=== PATIENT | female | born 1975 | race Caucasian/White ===

== ENCOUNTER 2017-03-03 20:52 | Emergency (ER) | payer OTHER ==
[~2017-03-03] VITALS: Ht 157.5 cm; Wt 74.0 kg
[~2017-03-03 20:52] MED LIST: HYDR-3535 PO; LIPI20TA PO
[2017-03-03 20:56] VITALS: BP 175/109; PULSE 88; RESP 16; TEMP 98.2; O2SAT 100
[2017-03-03] MEDS ORDERED: AMPH1TAB29 PO (21:07)
[2017-03-03] MEDS ORDERED: LISI10TA3 PO (21:07)
[2017-03-03] MEDS ORDERED: LEVO125T4 PO (21:07)
[2017-03-03] MEDS ORDERED: ACETAMINOPHEN/HYDROcodone 325 MG/5 MG TAB PO ONE (21:45)
--- NOTE | 2017-03-03 22:09 | RADRPT ---
EXAM DATE/TIME: 03/03/2017 21:50 [facility] COMPARISON: No previous studies available for comparison. INDICATIONS : Pain post fall. MEDICAL HISTORY : None. SURGICAL HISTORY : None. ENCOUNTER: Initial ACUITY: 3 days PAIN SCORE: 4/10 LOCATION: Right Elbow. FINDINGS: Multiple view examination of the right elbow demonstrates no soft tissue swelling, joint effusion, or fracture. The osseous structures are in normal alignment. Bony mineralization is normal. CONCLUSION: Intact right elbow. pM Beth MD on March 03, 2017 at 22:06 Board Certified Radiologist. This report was verified electronically.
--- NOTE | 2017-03-03 22:10 | RADRPT ---
EXAM DATE/TIME: 03/03/2017 21:50 [facility] COMPARISON: No previous studies available for comparison. INDICATIONS : Pain post fall. MEDICAL HISTORY : None. SURGICAL HISTORY : None. ENCOUNTER: Initial ACUITY: 3 days PAIN SCORE: 6/10 LOCATION: Right Forearm. FINDINGS: Soft tissue swelling seen dorsally of the proximal forearm. No radiopaque foreign body. The right rad ius and ulna are intact. CONCLUSION: Soft tissue swelling. No fracture. Mp Beth MD on March 03, 2017 at 22:07 Board Certified Radiologist. This report was verified electronically.
--- NOTE | 2017-03-03 22:14 | PD ---
HPI Chief Complaint: Injury Time Seen by Provider: 21:18 Travel History International Travel<30 days: No Contact w/Intl Traveler<30days: No Traveled to known affect area: No History of Present Illness HPI 41-year-old female came to the emergency room for right upper extremity pain and swelling after a fall 4 days ago. Patient says that she was walking in her kitchen when she slipped on a puddle of water and flipped backwards. Her right upper extremity hit against the refrigerator that caught her from landing on the ground but the impact was hard enough where she immediately bruised up near her elbow area. Since then she has been hurting. The pain has been progressively worsening. It hurts to twist her elbow or lift anything or even put pressure on the wrist. Vital signs are stable. Patient says that the first day she try to ice the area but that made the pain worse so she stopped doing it. She has been drinking reasonably taking Advil. Last time she took Advil was at 9 PM today. [facility] Past Medical History Narrative Medical List of her past medical, surgical, social and family history is reviewed from the nursing note. Bipolar Disorder: Yes Anxiety: Yes Depression: Yes Cancer: No Cardiovascular Problems: Yes (HTN) High Cholesterol: Yes Congestive Heart Failure: No Diabetes: No Diminished Hearing: No Endocrine: No Glaucoma: No Genitourinary: Yes Hepatitis: No Hiatal Hernia: No Herniated Disk: No Hypertension: Yes Immune Disorder: No Kidney Stones: Yes Musculoskeletal: No Neurologic: No Psychiatric: Yes Reproductive: No Respiratory: No Immunizations Current: Yes Thyroid Disease: No Tetanus Vaccination: < 5 Years Influenza Vaccination: No ?: Not Ovarian Cysts: Yes Past Surgical History Abdominal Surgery: Yes (CHOLECYSTECTOMY 2007, APPENDECTOMY 2008) Appendectomy: Yes Cardiac Surgery: No Cholecystectomy: Yes Ear Surgery: No Endocrine Surgery: No Eye Surgery: No Genitourinary Surgery: No Gynecologic Surgery: Yes (HYSTERECTOMY 2006) Hysterectomy: Yes Neurologic Surgery: No Oral Surgery: Yes (TONSILLECTOMY 1987) Pacemaker: No Thoracic Surgery: No Tonsillectomy: Yes Other Surgery: Yes (LITHOTRPSYS) Social History Alcohol Use: Yes (social) Tobacco Use: No (quit 8 years) Substance Use: Yes Allergies-Medications (Allergen,Severity, Reaction): Coded Allergies: Sulfa (Sulfonamide Antibiotics) (Unverified Allergy, Severe, N/V, 03/03/17) morphine (Unverified Allergy, Severe, RESP PROBLEMS, 03/03/17) Comments List of her allergies reviewed from the nursing note. Reported Meds & Prescriptions Reported Meds & Active Scripts Active Ibuprofen 600 Mg Tab 600 Mg PO Q6H PRN Reported Adderall (Amphetamine-Dextroamphetamine) 5 Mg Tab 5 Mg PO DAILY Avoid late evening doses. Space doses at least 4 to 6 hours if more than once/day dosing. Levothyroxine (Levothyroxine Sodium) 125 Mcg Tab 125 Mcg PO DAILY Lisinopril 10 Mg Tab 10 Mg PO DAILY PRN Lipitor (Atorvastatin Calcium) 20 Mg Tab 20 Mg PO HS Narrative Medication List of her home medications reviewed from the nursing note. Review of Systems Except as stated in HPI: all other systems reviewed are Neg Musculoskeletal: Positive: Pain Physical Exam Narrative GENERAL: Awake, alert, moderate distress SKIN: Focused skin assessment warm/dry. Left elbow area has contusion and bruising HEAD: Atraumatic. Normocephalic. EYES: Pupils equal and round. No scleral icterus. No injection or drainage. ENT: No nasal bleeding or discharge. Mucous membranes pink and moist. NECK: Trachea midline. No JVD. CARDIOVASCULAR: Regular rate and rhythm. No murmur appreciated. RESPIRATORY: No accessory muscle use. Clear to auscultation. Breath sounds equal bilaterally. GASTROINTESTINAL: Abdomen soft, non-tender, nondistended. Hepatic and splenic margins not palpable. MUSCULOSKELETAL: No obvious deformities. No clubbing. No cyanosis. No edema. Decreased range of motion at the wrist and elbow joint due to the pain. Distal pulsations and sensation intact NEUROLOGICAL: Awake and alert. No obvious cranial nerve deficits. Motor grossly within normal limits. Normal speech. PSYCHIATRIC: Appropriate mood and affect; insight and judgment normal. Data Data Last Documented VS Vital Signs Date Time Temp Pulse Resp B/P (MAP) Pulse Ox O2 Delivery O2 Flow Rate FiO2 03/03/17 20:56 98.2 88 16 175/109 (131) 100 Orders Orders Elbow, Complete (4 Vws) (03/03/17 ) Wrist, Complete (Dtd8gpo) (03/03/17 ) Forearm (2vws) (03/03/17 ) Acetamin-Hydrocod 325-5 Mg ([place] 5-325 (03/03/17 21:45) Ed Discharge Order (03/03/17 22:22) [facility] Medical Decision Making Medical Screen Exam Complete: Yes Emergency Medical Condition: Yes Medical Record Reviewed: Yes Differential Diagnosis Elbow fracture, forearm fracture, wrist fracture, elbow strain Narrative Course 10:19 PM x-ray of the elbow and forearm has been read negative by radiologist. X-ray of the wrist has been read negative as well. Patient was given 2 hydrocodone's. At this point I'll discharge her home and have her follow-up with her primary care. Procedures EKG Prior to Arrival: No Diagnosis Primary Impression: Elbow strain Qualified Codes: S56.911A - Strain of unspecified muscles, fascia and tendons at forearm level, right arm, initial encounter Additional Impression: Wrist strain Qualified Codes: S66.911A - Strain of unspecified muscle, fascia and tendon at wrist and hand level, right hand, initial encounter Referrals: Primary Care Physician 2 days Additional Instructions: Take the medication as per the prescription direction. Apply ice pack to the area. Not lift heavy weight or prevent excessive use of the right arm at the elbow and wrist joint. Follow-up with your primary care next couple days. Return to ER if condition worsens or any other new concerns. Drink lots of fluid while taking the pain medication that's been prescribed to you. Do not take empty stomach. Med/Other Pt SpecificInfo: Prescription(s) given Scripts Ibuprofen (Ibuprofen) 600 Mg Tab 600 MG PO Q6H Y for Pain/Inflammation, #40 TAB 0 Refills Prov: Desiree Wilder MD 03/03/17 Disposition: 01 DISCHARGE HOME Condition: Stable Desiree Wilder MD Mar 03, 2017 22:14
--- NOTE | 2017-03-03 22:17 | RADRPT ---
EXAM DATE/TIME: 03/03/2017 21:50 [facility] COMPARISON: ELBOW RIGHT COMPLETE (4 VWS), March 03, 2017, 21:50. INDICATIONS : Pain post fall MEDICAL HISTORY : None acutely relevant SURGICAL HISTORY : None ENCOUNTER: Initial ACUITY: 3 days PAIN SCORE: 4/10 LOCATION: Right wrist FINDINGS: Three view examination of the right wrist demonstrates no soft tissue swelling, dislocation, or fract ure. The carpal bones are in normal alignment. The joint spaces are maintained. Bony mineralizatio n is normal. CONCLUSION: Normal, intact right wrist. Mp Beth MD on March 03, 2017 at 22:14 Board Certified Radiologist. This report was verified electronically.
[2017-03-03] MEDS ORDERED: IBUP-232 PO (22:21)
== END 2017-03-03 22:55 | disposition home or self-care (01) ==
LOC: PHEFT 20:52
DX: S56.911A Strain of unspecified muscles, fascia and tendons at forearm level, right arm, initial encounter (principal); S66.911A Strain of unspecified muscle, fascia and tendon at wrist and hand level, right hand, initial encounter; E78.00 Pure hypercholesterolemia, unspecified; I10 Essential (primary) hypertension; F31.9 Bipolar disorder, unspecified; W01.198A Fall on same level from slipping, tripping and stumbling with subsequent striking against other object, initial encounter; Y92.000 Kitchen of unspecified non-institutional (private) residence as the place of occurrence of the external cause
CPT/HCPCS: 73080; 73090; 73110; 99283

== ENCOUNTER 2017-04-21 22:29 | Inpatient (IN) | payer OTHER ==
[~2017-04-21] VITALS: Ht 162.6 cm; Wt 77.0 kg
[~2017-04-21 22:29] MED LIST changes: +AMPH1TAB29 PO; -HYDR-3535 PO; +IBUP-232 PO; +LEVO125T4 PO; +LISI10TA3 PO
[2017-04-21 22:40] VITALS: BP 164/102; PULSE 87; PULSE 92; RESP 10; RESP 14; TEMP 98; O2SAT 100; O2SAT 92
[2017-04-21] MEDS ORDERED: SODIUM CHLOR 0.9% 1000 ML INJ 1,000 ML IV ONE ×2 (22:42→23:00)
[2017-04-21] MEDS ORDERED: ROCURONIUM INJ 50 MG/5 ML VIAL IV ONE (22:45)
[2017-04-21] MEDS ORDERED: SODIUM CHLORIDE 0.9% FLUSH 10 ML FLUSH IVF PRN (22:45)
[2017-04-21] MEDS ORDERED: ETOMIDATE 20 MG/10 ML VIAL IV PUSH ONE (22:45)
[2017-04-21] MEDS: PROPOFOL 1000 MG/100 ML INJ 100 ML IV PRN (23:05)
--- NOTE | 2017-04-21 23:11 | PD ---
HPI Chief Complaint: OD/ Ingestion Time Seen by Provider: 22:41 Travel History International Travel<30 days: No Contact w/Intl Traveler<30days: No Traveled to known affect area: No History of Present Illness HPI 41-year-old female brought in by ambulance from home unresponsive as a potential drug overdose. According to EMS the patient was found by her son unresponsive in her bedroom with empty pill bottles nearby. EMS reports that the son stated that she has been making suicidal statements lately. They gave her 0.4 mg of Narcan 2 without any improvement in mental status. They did note pinpoint pupils and sonorous respirations with decreased respiratory rate. They attempted to intubate her by pretreating her with 20 mg of etomidate and 2 mg of Versed, however they were unable to unhinge her jaw, so intubation was not attempted. Upon arrival to the emergency department the patient's respirations are being assisted by BVM. She is unresponsive. She was given 4 mg of IV Narcan upon arrival with only minimal improvement in mentation as well as response to painful stimuli. Patient was forming in her mouth and not protecting her airway. Because of this she was intubated emergently by me shortly after arrival to the emergency department for airway protection. PFSH Past Medical History Bipolar Disorder: Yes Anxiety: Yes Depression: Yes Cancer: No Cardiovascular Problems: Yes (HTN) High Cholesterol: Yes Congestive Heart Failure: No Diabetes: No Diminished Hearing: No Endocrine: No Glaucoma: No Genitourinary: Yes Hepatitis: No Hiatal Hernia: No Herniated Disk: No Hypertension: Yes Immune Disorder: No Kidney Stones: Yes Musculoskeletal: No Neurologic: No Psychiatric: Yes Reproductive: No Respiratory: No Immunizations Current: Yes Thyroid Disease: No Ovarian Cysts: Yes Past Surgical History Abdominal Surgery: Yes (CHOLECYSTECTOMY 2007, APPENDECTOMY 2008) Appendectomy: Yes Cardiac Surgery: No Cholecystectomy: Yes Ear Surgery: No Endocrine Surgery: No Eye Surgery: No Genitourinary Surgery: No Gynecologic Surgery: Yes (HYSTERECTOMY 2006) Hysterectomy: Yes Neurologic Surgery: No Oral Surgery: Yes (TONSILLECTOMY 1987) Pacemaker: No Thoracic Surgery: No Tonsillectomy: Yes Other Surgery: Yes (LITHOTRPSYS) Social History Alcohol Use: Yes (social) Tobacco Use: No (quit 8 years) Substance Use: Yes Allergies-Medications (Allergen,Severity, Reaction): Coded Allergies: Sulfa (Sulfonamide Antibiotics) (Unverified Allergy, Severe, N/V, 04/21/17) morphine (Unverified Allergy, Severe, RESP PROBLEMS, 04/21/17) Reported Meds & Prescriptions Reported Meds & Active Scripts Active Ibuprofen 600 Mg Tab 600 Mg PO Q6H PRN Reported Risperidone 0.5 Mg Tab 0.5 Mg PO Q12HR Promethazine (Promethazine HCl) 12.5 Mg Tab 12.5 Mg PO Q8HR PRN Tamsulosin (Tamsulosin HCl) 0.4 Mg Cap 0.8 Mg PO HS Omeprazole 20 Mg Tab 20 Mg PO DAILY Meloxicam 15 Mg Tab 15 Mg PO DAILY Cipro (Ciprofloxacin HCl) 500 Mg Tab 500 Mg PO BID Dicyclomine (Dicyclomine HCl) 20 Mg Tab 20 Mg PO QID Flagyl (Metronidazole) 500 Mg Tab 500 Mg PO TID Adderall (Amphetamine-Dextroamphetamine) 5 Mg Tab 5 Mg PO DAILY Avoid late evening doses. Space doses at least 4 to 6 hours if more than once/day dosing. Levothyroxine (Levothyroxine Sodium) 125 Mcg Tab 125 Mcg PO DAILY Lisinopril 10 Mg Tab 10 Mg PO DAILY PRN Lipitor (Atorvastatin Calcium) 20 Mg Tab 20 Mg PO HS Review of Systems ROS Limitations: Intoxication, Altered Mental Status, Unresponsive Physical Exam Narrative GENERAL: Well-developed, well-nourished, unresponsive to verbal or painful stimuli, respirations assisted by BVM, no obvious signs of trauma. SKIN: Focused skin assessment warm/dry. HEAD: Atraumatic. Normocephalic. EYES: Pupils pinpoint, equal, round. Disconjugate gaze. No scleral icterus. No injection or drainage. ENT: Mucous membranes pink and moist. Frothy sputum in mouth. NECK: Trachea midline. No JVD. CARDIOVASCULAR: Tachycardic, rate 110, regular. RESPIRATORY: Bradypneic with a respiratory rate less than 10, BVM assisted respirations. GASTROINTESTINAL: Abdomen soft, non-tender, nondistended. MUSCULOSKELETAL: No obvious deformities. No clubbing. No cyanosis. No edema. NEUROLOGICAL: Obtunded, unresponsive to verbal or painful stimuli. Data Data Last Documented VS Vital Signs Date Time Temp Pulse Resp B/P (MAP) Pulse Ox O2 Delivery O2 Flow Rate FiO2 04/21/17 23:13 108 14 181/91 (121) 98 Ventilator 70 04/21/17 22:40 98.0 Orders Orders Electrocardiogram (04/21/17 22:42) Complete Blood Count With Diff (04/21/17 22:42) Comprehensive Metabolic Panel (04/21/17 22:42) Prothrombin Time / Inr (Pt) (04/21/17 22:42) Act Partial Throm Time (Ptt) (04/21/17 22:42) Chest, Single Ap (04/21/17 22:42) Ct Brain W/O Iv Contrast(Rout) (04/21/17 22:42) Iv Access Insert/Monitor (04/21/17 22:42) Ecg Monitoring (04/21/17 22:42) Oximetry (04/21/17 22:42) Chandni-Gastric Tube Insert/Mon (04/21/17 22:42) Sodium Chloride 0.9% Flush (Ns Flush) (04/21/17 22:45) Sodium Chlor 0.9% 1000 Ml Inj (Ns 1000 M (04/21/17 22:42) Drug Screen, Random Urine (04/21/17 22:42) Alcohol (Ethanol) (04/21/17 22:42) Salicylates (Aspirin) (04/21/17 22:42) Tylenol (Acetaminophen) (04/21/17 22:42) Beta Hcg (Quant/Titer) (04/21/17 22:42) Propofol 1000 Mg/100 Ml Inj (Diprivan 10 (04/21/17 22:45) Etomidate Inj (Amidate Inj) (04/21/17 22:45) Rocuronium Inj (Zemuron Inj) (04/21/17 22:45) Urinary Catheter Insert/Apply (04/21/17 22:43) Sodium Chlor 0.9% 1000 Ml Inj (Ns 1000 M (04/21/17 23:00) Fentanyl Inj (Fentanyl Inj) (04/21/17 23:30) Arterial Blood Gas (Abg) (04/21/17 ) Labs Laboratory Tests Test 04/21/17 22:53 White Blood Count 6.7 TH/MM3 Red Blood Count 4.64 MIL/MM3 Hemoglobin 14.0 GM/DL Hematocrit 40.8 % Mean Corpuscular Volume 88.0 FL Mean Corpuscular Hemoglobin 30.2 PG Mean Corpuscular Hemoglobin Concent 34.4 % Red Cell Distribution Width 12.9 % Platelet Count 274 TH/MM3 Mean Platelet Volume 8.7 FL Neutrophils (%) (Auto) 42.3 % Lymphocytes (%) (Auto) 50.2 % Monocytes (%) (Auto) 5.4 % Eosinophils (%) (Auto) 1.4 % Basophils (%) (Auto) 0.7 % Neutrophils # (Auto) 2.8 TH/MM3 Lymphocytes # (Auto) 3.4 TH/MM3 Monocytes # (Auto) 0.4 TH/MM3 Eosinophils # (Auto) 0.1 TH/MM3 Basophils # (Auto) 0.0 TH/MM3 CBC Comment DIFF FINAL Differential Comment Prothrombin Time 10.0 SEC Prothromb Time International Ratio 1.0 RATIO Activated Partial Thromboplast Time 25.0 SEC Salicylates Level LESS THAN 1.7 MG/DL Urine Opiates Screen NEG Urine Barbiturates Screen NEG Urine Amphetamines Screen POS Urine Benzodiazepines Screen NEG Urine Cocaine Screen NEG Urine Cannabinoids Screen NEG MDM Medical Decision Making Medical Screen Exam Complete: Yes Emergency Medical Condition: Yes Medical Record Reviewed: Yes Interpretation(s) EKG: Sinus, rate 105, normal axis, normal intervals, no acute ischemic abnormality. Differential Diagnosis Drug overdose, medication overdose, intracranial abnormality, metabolic abnormality Narrative Course Vital signs reviewed. CBC is unremarkable. CMP Urine drug screen is positive for amphetamines. Case was discussed with bsw Dr. Lam shortly after the patient arrived to the emergency department, and he will admit the patient to his service to the ICU. Procedures Procedure Narrative Emergent intubation: The patient was put in optimal position for the procedure. Rapid sequence intubation was initiated by me using 20 milligrams of etomidate IV and 50 milligrams of rocuronium IV. The patient was intubated with a 7.5 Persian cuffed endotracheal tube. Tube placement was confirmed by visualization of the tube and balloon passing through the cords, capnometry and subsequent chest x-ray. Breath sounds were equal and well aerated bilaterally postintubation. No breath sounds over stomach. Patient tolerated procedure well. Diagnosis Primary Impression: Altered mental status Qualified Codes: R40.2431 - [place] coma scale score 3-8, in the field [emt or ambulance] Additional Impression: Acute respiratory failure Qualified Codes: J96.00 - Acute respiratory failure, unspecified whether with hypoxia or hypercapnia Admitting Information Admitting Physician Requests: Admit Manpreet Cesar MD Apr 21, 2017 23:11
[2017-04-21 23:12] VITALS: BP 153/94; PULSE 102; RESP 14; O2SAT 100
[2017-04-21] MEDS ORDERED: DICY20TA10 PO (23:12)
[2017-04-21] MEDS ORDERED: CIPR-9 PO (23:12)
[2017-04-21] MEDS ORDERED: TAMS0.4C4 PO (23:12)
[2017-04-21] MEDS ORDERED: OMEP20TA93 PO (23:12)
[2017-04-21] MEDS ORDERED: PROM12.54 PO (23:12)
[2017-04-21] MEDS ORDERED: METR-1 PO (23:12)
[2017-04-21] MEDS ORDERED: RISP0.5T2 PO (23:12)
[2017-04-21] MEDS ORDERED: MELO15TA20 PO (23:12)
[2017-04-21 23:13] VITALS: BP 181/91; PULSE 108; RESP 14; O2SAT 98
[2017-04-21 23:15] LABS: AUTOMATED NEUTROPHIL # 2.8 TH/MM3 (1.8-7.7); BASOPHIL % 0.7 % (0.0-2.0); EOSINOPHIL # 0.1 TH/MM3 (0-0.4); EOSINOPHIL % 1.4 % (0.0-4.0); HEMATOCRIT 40.8 % (35.0-46.0); LYMPH % 50.2 % (9.0-44.0); LYMPHOCYTE # 3.4 TH/MM3 (1.0-4.8); MEAN CORPUSCULAR HEMOGLOBIN 30.2 PG (27.0-34.0); MEAN CORPUSCULAR HGB CONC 34.4 % (32.0-36.0); MEAN PLATELET VOLUME 8.7 FL (7.0-11.0); MONO % 5.4 % (0.0-8.0); MONOCYTE # 0.4 TH/MM3 (0-0.9); NEUT % 42.3 % (16.0-70.0); PLATELET COUNT 274 TH/MM3 (150-450); RED BLOOD COUNT 4.64 MIL/MM3 (4.00-5.30); RED CELL DISTRIBUTION WIDTH 12.9 % (11.6-17.2); WHITE BLOOD COUNT 6.7 TH/MM3 (4.0-11.0)
[2017-04-21 23:42] LABS: ALKALINE PHOSPHATASE 76 U/L (45-117); ALT (GPT) 27 U/L (10-53); TOTAL BILIRUBIN ADULT 0.3 MG/DL (0.2-1.0); TOTAL PROTEIN 7.7 GM/DL (6.4-8.2)
[2017-04-21 23:47] LABS: ALBUMIN 3.8 GM/DL (3.4-5.0)
[2017-04-21 23:48] LABS: ACETAMINOPHEN LESS THAN 2.0 MCG/ML (10.0-30.0); AST (GOT) 28 U/L (15-37); BLOOD UREA NITROGEN 7 MG/DL (7-18); CALCIUM 8.2 MG/DL (8.5-10.1); CHLORIDE 109 MEQ/L (98-107); CREATININE 0.64 MG/DL (0.50-1.00); GLOMERULAR FILTRATION RATE 102 ML/MIN (>89); GLUCOSE,RANDOM 91 MG/DL (74-106); SODIUM (NA) 144 MEQ/L (136-145)
--- NOTE | 2017-04-21 23:49 | HHI.HP ---
HPI Service Critical Care Medicine Primary Care Physician Britton Rod M.D. Admission Diagnosis AMS, possible overdose, acute respiratory failure Diagnosis: Travel History International Travel<30 Days: No Contact w/Intl Traveler <30 Da: No Traveled to Known Affected Are: No History of Present Illness 41-year-old female brought in by ambulance from home unresponsive as a potential drug overdose. According to EMS the patient was found by her son unresponsive in her bedroom with empty pill bottles nearby. EMS reports that the son stated that she has been making suicidal statements lately. They gave her 0.4 mg of Narcan 2 without any improvement in mental status. They did note pinpoint pupils and sonorous respirations with decreased respiratory rate. They attempted to intubate her by pretreating her with 20 mg of etomidate and 2 mg of Versed, however they were unable to unhinge her jaw, so intubation was not attempted. Upon arrival to the emergency department the patient's respirations were assisted by BVM. She was unresponsive. She was given 4 mg of IV Narcan upon arrival with only minimal improvement in mentation as well as response to painful stimuli. Patient was forming in her mouth and not protecting her airway. Therefore she was intubated by ED attending for airway protection. Review of Systems ROS Unobtainable patient sedated and intubated Past Family Social History Allergies: Coded Allergies: Sulfa (Sulfonamide Antibiotics) (Unverified Allergy, Severe, N/V, 04/21/17) morphine (Unverified Allergy, Severe, RESP PROBLEMS, 04/21/17) Past Medical History Nephrolithiasis Anxiety/depression Hypertension Past Surgical History Status post recent left ureteroscopy with laser lithotripsy Status post cholecystectomy Reported Medications Reported Meds & Active Scripts Active Ibuprofen 600 Mg Tab 600 Mg PO Q6H PRN Reported Risperidone 0.5 Mg Tab 0.5 Mg PO Q12HR Promethazine (Promethazine HCl) 12.5 Mg Tab 12.5 Mg PO Q8HR PRN Tamsulosin (Tamsulosin HCl) 0.4 Mg Cap 0.8 Mg PO HS Omeprazole 20 Mg Tab 20 Mg PO DAILY Meloxicam 15 Mg Tab 15 Mg PO DAILY Cipro (Ciprofloxacin HCl) 500 Mg Tab 500 Mg PO BID Dicyclomine (Dicyclomine HCl) 20 Mg Tab 20 Mg PO QID Flagyl (Metronidazole) 500 Mg Tab 500 Mg PO TID Adderall (Amphetamine-Dextroamphetamine) 5 Mg Tab 5 Mg PO DAILY Avoid late evening doses. Space doses at least 4 to 6 hours if more than once/day dosing. Levothyroxine (Levothyroxine Sodium) 125 Mcg Tab 125 Mcg PO DAILY Lisinopril 10 Mg Tab 10 Mg PO DAILY PRN Lipitor (Atorvastatin Calcium) 20 Mg Tab 20 Mg PO HS Active Ordered Medications Current Medications Medications (Trade) Dose Ordered Sig/Yue Route PRN Reason Start Time Stop Time Status Last Admin Dose Admin Sodium Chloride (NS Flush) 2 ml UNSCH PRN IVF FLUSH AFTER USING IV ACCESS 04/21/17 22:45 Propofol 100 ml @ 0 mls/hr TITRATE PRN IV SEDATION 04/21/17 22:45 04/21/17 23:05 Atorvastatin Calcium (Lipitor) 20 mg HS PO 04/22/17 21:00 Ciprofloxacin (Cipro) 500 mg BID PO 04/22/17 09:00 Dicyclomine HCl (Bentyl) 20 mg QID PO 04/22/17 09:00 Levothyroxine Sodium (Synthroid) 125 mcg DAILY PO 04/22/17 09:00 UNV Lisinopril (Prinivil) 10 mg DAILY PRN PO HYPERTENSION 04/22/17 00:30 Metronidazole (Flagyl) 500 mg TID PO 04/22/17 09:00 Risperidone (risperDAL) 0.5 mg Q12HR PO 04/22/17 09:00 Tamsulosin HCl (Flomax) 0.8 mg HS PO 04/22/17 21:00 Family History No family history significant of early coronary artery disease or malignancy Social History No history of tobacco, alcohol or illicit drug use Physical Exam Vital Signs Vital Signs Date Time Temp Pulse Resp B/P (MAP) Pulse Ox O2 Delivery O2 Flow Rate FiO2 04/21/17 23:13 108 14 181/91 (121) 98 Ventilator 70 04/21/17 23:12 102 14 153/94 (113) 100 Ventilator 70 04/21/17 22:40 10 92 Bag Valve 04/21/17 22:40 98.0 92 10 164/102 (122) 92 04/21/17 22:40 70 04/21/17 22:40 87 14 100 Ventilator 70 Physical Exam GENERAL: Well-nourished, well-developed patient. Sedated and intubated SKIN: Warm and dry. HEAD: Normocephalic. EYES: No scleral icterus. No injection or drainage. Pupils are 3 mm bilaterally and sluggishly reactive NECK: Supple, trachea midline. No JVD or lymphadenopathy. CARDIOVASCULAR: Regular rate and rhythm without murmurs, gallops, or rubs. RESPIRATORY: Breath sounds equal bilaterally. No accessory muscle use. GASTROINTESTINAL: Abdomen soft, non-tender, nondistended. MUSCULOSKELETAL: No cyanosis, or edema. BACK: Nontender without obvious deformity. NEURO EXAM: GCS: M 5 Vt E2 Mental Status: The patient is sedated and intubated, she moves all 4 extremities spontaneously however not following commands. Laboratory Laboratory Tests Test 04/21/17 22:53 White Blood Count 6.7 Red Blood Count 4.64 Hemoglobin 14.0 Hematocrit 40.8 Mean Corpuscular Volume 88.0 Mean Corpuscular Hemoglobin 30.2 Mean Corpuscular Hemoglobin Concent 34.4 Red Cell Distribution Width 12.9 Platelet Count 274 Mean Platelet Volume 8.7 Neutrophils (%) (Auto) 42.3 Lymphocytes (%) (Auto) 50.2 Monocytes (%) (Auto) 5.4 Eosinophils (%) (Auto) 1.4 Basophils (%) (Auto) 0.7 Neutrophils # (Auto) 2.8 Lymphocytes # (Auto) 3.4 Monocytes # (Auto) 0.4 Eosinophils # (Auto) 0.1 Basophils # (Auto) 0.0 CBC Comment DIFF FINAL Differential Comment Prothrombin Time 10.0 Prothromb Time International Ratio 1.0 Activated Partial Thromboplast Time 25.0 Blood Urea Nitrogen 7 Creatinine 0.64 Random Glucose 91 Total Protein 7.7 Albumin 3.8 Calcium Level 8.2 Alkaline Phosphatase 76 Aspartate Amino Transf (AST/SGOT) 28 Alanine Aminotransferase (ALT/SGPT) 27 Total Bilirubin 0.3 Sodium Level 144 Potassium Level 3.5 Chloride Level 109 Carbon Dioxide Level 22.0 Anion Gap 13 Estimat Glomerular Filtration Rate 102 Human Chorionic Gonadotropin, Quant 2 Salicylates Level LESS THAN 1.7 Urine Opiates Screen NEG Acetaminophen Level LESS THAN 2.0 Urine Barbiturates Screen NEG Urine Amphetamines Screen POS Urine Benzodiazepines Screen NEG Urine Cocaine Screen NEG Urine Cannabinoids Screen NEG Ethyl Alcohol Level 215 Result Diagram: 04/21/17225204/21/172252 Septic Shock Reassessment Septic shock perfusion: reassessment completed Caprini VTE Risk Assessment Caprini VTE Risk Assessment: Mod/High Risk (score >= 2) Caprini Risk Assessment Model Point Value = 1 Point Value = 2 Point Value = 3 Point Value = 5 Age 41-60 Minor surgery BMI > 25 kg/m2 Swollen legs Varicose veins or History of unexplained or recurrent spontaneous Oral contraceptives or hormone replacement Sepsis (< 1 month) Serious lung disease, including pneumonia (< 1 month) Abnormal pulmonary function Acute myocardial infarction Congestive heart failure (< 1 month) History of inflammatory bowel disease Medical patient at bed rest Age 61-74 Arthroscopic surgery Major open surgery (> 45 min) Laparoscopic surgery (> 45 min) Malignancy Confined to bed (> 72 hours) Immobilizing plaster cast Central venous access Age >= 75 History of VTE Family history of VTE Factor V Leiden Prothrombin 52503I Lupus anticoagulant Anticardiolipin antibodies Elevated serum homocysteine Heparin-induced thrombocytopenia Other congenital or acquired thrombophilia Stroke (< 1 month) Elective arthroplasty Hip, pelvis, or leg fracture Acute spinal cord injury (< 1 month) Prophylaxis Regimen Total Risk Factor Score Risk Level Prophylaxis Regimen 0-1 Low Early ambulation 2 Moderate Order ONE of the following: *Sequential Compression Device (SCD) *Heparin 5000 units SQ BID 3-4 Higher Order ONE of the following medications: *Heparin 5000 units SQ TID *Enoxaparin/Lovenox 40 mg SQ daily (WT < 150 kg, CrCl > 30 mL/min) *Enoxaparin/Lovenox 30 mg SQ daily (WT < 150 kg, CrCl > 10-29 mL/min) *Enoxaparin/Lovenox 30 mg SQ BID (WT < 150 kg, CrCl > 30 mL/min) AND/OR *Sequential Compression Device (SCD) 5 or more Highest Order ONE of the following medications: *Heparin 5000 units SQ TID (Preferred with Epidurals) *Enoxaparin/Lovenox 40 mg SQ daily (WT < 150 kg, CrCl > 30 mL/min) *Enoxaparin/Lovenox 30 mg SQ daily (WT < 150 kg, CrCl > 10-29 mL/min) *Enoxaparin/Lovenox 30 mg SQ BID (WT < 150 kg, CrCl > 30 mL/min) AND *Sequential Compression Device (SCD) Assessment and Plan Assessment and Plan Respiratory failure - Intubated for an airway protection - Vent bundle - Mechanical ventilation - No weaning until neurologically improved - DuoNeb's when necessary Overdose - Unclear substance - Toxicology screen positive for nephropathy demeans - Neuro checks per unit protocol - Supportive care - Aggressive IV hydration Depressions - Psych evaluation when extubated - Risperdal Hypothyroidism - Levothyroxine - TSH level in a.m. DVT GI prophylaxis - Teds SCDs - Lovenox - Pepcid Critical Care: The total critical care time was 35 minutes. Time to perform other separately billable procedures was not included in the critical care time. Wily Lam MD Apr 21, 2017 11:49 pm
[2017-04-22] VITALS (20 sets, daily range): BP systolic 123–164; BP diastolic 82–104; PULSE 69–116; RESP 14; TEMP 96.8–98.3; O2SAT 99–100
--- NOTE | 2017-04-22 00:21 | RADRPT ---
EXAM DATE/TIME: 04/21/2017 23:04 [facility] COMPARISON: No previous studies available for comparison. INDICATIONS : E-T tube placement on an unresponsive possible overdose patient. MEDICAL HISTORY : None. SURGICAL HISTORY : None. ENCOUNTER: Initial ACUITY: 1 day PAIN SCORE: Non-responsive. LOCATION: Bilateral chest FINDINGS: A single view of the chest demonstrates the lungs to be symmetrically aerated without evidence of mas s, infiltrate or effusion. The cardiomediastinal contours are unremarkable. Osseous structures are intact. Endotracheal tube with the tip appropriately position above the ja. Nasogastric tube with the tip curled in the gastric fundus CONCLUSION: 1. Lungs are clear. Heart size is normal. 2. Appropriate position of life support tubes. Nirmal Green MD on April 22, 2017 at 0:19 Board Certified Radiologist. This report was verified electronically.
[2017-04-22] MEDS ORDERED: BISACODYL 10 MG SUPP RECTAL PRN (00:30)
[2017-04-22] MEDS ORDERED: MIDAZOLAM HCL 2 MG/2 ML VIAL IV PUSH PRN (00:30)
[2017-04-22] MEDS ORDERED: MISCELLANEOUS NURSING INFORMATION XX SCH (00:30)
[2017-04-22] MEDS ORDERED: CHLORHEXIDINE GLUCONATE 2 % 1 PACK (2 CLOTHS) TOP PRN (00:30)
[2017-04-22] MEDS ORDERED: ONDANSETRON HCL 4 MG/2 ML VIAL IV PUSH PRN (00:30)
[2017-04-22] MEDS ORDERED: LACTULOSE SYRUP 20 GM/30 ML CUP PO PRN (00:30)
[2017-04-22] MEDS ORDERED: SODIUM CHLORIDE 0.9% FLUSH 10 ML FLUSH IV FLUSH PRN (00:30)
[2017-04-22] MEDS ORDERED: MAGNESIUM HYDROXIDE SUSP 30 ML CUP PO PRN (00:30)
[2017-04-22] MEDS ORDERED: SENNOSIDES 8.6 MG TAB PO PRN (00:30)
[2017-04-22] MEDS ORDERED: LISINOPRIL 10 MG TAB PO PRN (00:30)
[2017-04-22] MEDS ORDERED: POTASSIUM CHLOR 40 MEQ PREMIX 100 ML IV PRN ×2 (00:45)
[2017-04-22] MEDS ORDERED: POTASSIUM PHOSPHATE INJ 30 MMOL in SODIUM CHLOR 0.9% 250 ML INJ 250 ML IV PRN (00:45)
[2017-04-22] MEDS ORDERED: MAGNESIUM OXIDE 400 MG TAB PO PRN (00:45)
[2017-04-22] MEDS ORDERED: POTASSIUM CHLOR 20 MEQ PREMIX 100 ML IV PRN (00:45)
[2017-04-22] MEDS ORDERED: MAGNESIUM SULFATE INJ 2 GM in SODIUM CHLORIDE 0.9% INJ 96 ML IV PRN (00:45)
[2017-04-22] MEDS ORDERED: MAGNESIUM SULFATE INJ 4 GM in SODIUM CHLORIDE 0.9% INJ 92 ML IV PRN (00:45)
[2017-04-22] MEDS ORDERED: POTASSIUM CHLORIDE 25 MEQ EFFERVESCENT TAB PO PRN (00:45)
[2017-04-22] MEDS ORDERED: POTASSIUM PHOSPHATE MONOBASIC 500 MG TAB PO/TUBE PRN (00:45)
[2017-04-22] MEDS ORDERED: SODIUM PHOSPHATE INJ 30 MMOL in SODIUM CHLOR 0.9% 250 ML INJ 240 ML IV PRN (00:45)
[2017-04-22] MEDS: SODIUM CHLOR 0.9% 1000 ML INJ 1,000 ML IV SCH ×2 (01:27→12:18)
[2017-04-22] MEDS: MIDAZOLAM 100 MG/100 ML INJ 100 ML IV PRN ×3 (01:27→21:44)
[2017-04-22] MEDS: PROPOFOL 1000 MG/100 ML INJ 100 ML IV PRN ×4 (01:47→20:21)
[2017-04-22] MEDS: RESP: ALBUTEROL 2.5 MG/IPRATROPIUM 0.5 MG NEB (SCH) INH ×4 (03:58→21:34)
[2017-04-22] MEDS: CHLORHEXIDINE GLUCONATE 2 % 1 PACK (2 CLOTHS) TOP SCH (04:00)
[2017-04-22] MEDS: ENOXAPARIN SODIUM 40 MG/0.4 ML SYRINGE SQ SCH (06:37)
[2017-04-22] MEDS: LEVOTHYROXINE SODIUM 125 MCG TAB PO SCH (06:37)
[2017-04-22 08:09] LABS: HEMATOCRIT 37.8 % (35.0-46.0); MEAN CELL VOLUME 87.7 FL (80.0-100.0); MEAN CORPUSCULAR HEMOGLOBIN 30.1 PG (27.0-34.0); MEAN CORPUSCULAR HGB CONC 34.3 % (32.0-36.0); MEAN PLATELET VOLUME 8.6 FL (7.0-11.0); PLATELET COUNT 232 TH/MM3 (150-450); RED BLOOD COUNT 4.31 MIL/MM3 (4.00-5.30); RED CELL DISTRIBUTION WIDTH 12.6 % (11.6-17.2); WHITE BLOOD COUNT 8.7 TH/MM3 (4.0-11.0)
[2017-04-22] MEDS: risperiDONE 0.5 MG TAB PO SCH ×2 (08:20→20:40)
[2017-04-22] MEDS: metroNIDAZOLE 500 MG TAB PO SCH ×3 (08:20→18:17)
[2017-04-22] MEDS: FAMOTIDINE 20 MG/2 ML VIAL IV PUSH SCH ×2 (08:20→20:40)
[2017-04-22] MEDS: DOCUSATE SODIUM 50 MG/SENNA 8.6 MG TAB PO SCH ×2 (08:20→20:40)
[2017-04-22] MEDS: DICYCLOMINE HCL 20 MG TAB PO SCH ×4 (08:21→20:41)
[2017-04-22] MEDS: SODIUM CHLORIDE 0.9% FLUSH 10 ML FLUSH IV FLUSH SCH ×2 (08:21→20:40)
[2017-04-22] MEDS: CIPROFLOXACIN 500 MG TAB PO SCH ×2 (08:21→20:40)
[2017-04-22] MEDS: CHLORHEXIDINE 0.12% (ORAL KIT) 15 ML CUP MT SCH ×2 (08:24→20:00)
[2017-04-22 08:43] LABS: ALBUMIN 3.4 GM/DL (3.4-5.0); BICARBONATE 22.1 MEQ/L (21.0-32.0); CALCIUM 7.4 MG/DL (8.5-10.1); CALCIUM-PROTEIN CORRECTED 7.7 MG/DL (8.5-10.1); CREATININE 0.53 MG/DL (0.50-1.00); MAGNESIUM 1.8 MG/DL (1.5-2.5); PHOSPHORUS 2.1 MG/DL (2.5-4.9); TOTAL BILIRUBIN ADULT 0.3 MG/DL (0.2-1.0); TOTAL PROTEIN 6.5 GM/DL (6.4-8.2)
[2017-04-22] MEDS: ARTIFICIAL TEARS OPTH SOLN 15 ML BTL EACH EYE SCH ×3 (09:00→18:00)
--- NOTE | 2017-04-22 09:59 | RADRPT ---
EXAM DATE/TIME: 04/22/2017 09:43 [facility] COMPARISON: No previous studies available for comparison. INDICATIONS : Overdose, altered mental status. RADIATION DOSE: 49.03 CTDIvol (mGy) MEDICAL HISTORY : Hypertension. Renal calculi. SURGICAL HISTORY : Appendectomy. Cholecystectomy.Hysterectomy.Lithoyripsy ENCOUNTER: Initial ACUITY: 1 day PAIN SCALE: Non-responsive LOCATION: cranial TECHNIQUE: Multiple contiguous axial images were obtained of the head. Using automated exposure control and adj ustment of the mA and/or kV according to patient size, radiation dose was kept as low as reasonably a chievable to obtain optimal diagnostic quality images. DICOM format image data is available electro nically for review and comparison. FINDINGS: CEREBRUM: The ventricles are normal for age. No evidence of midline shift, mass lesion, hemorrhage or acute in farction. No extra-axial fluid collections are seen. POSTERIOR FOSSA: The cerebellum and brainstem are intact. The 4th ventricle is midline. The cerebellopontine angle i s unremarkable. EXTRACRANIAL: The visualized portion of the orbits is intact. SKULL: The calvaria is intact. No evidence of skull fracture. CONCLUSION: No acute disease. Margarita Ware MD on April 22, 2017 at 9:56 Board Certified Radiologist. This report was verified electronically.
[2017-04-22] MEDS: POTASSIUM CHLOR 20 MEQ PREMIX 100 ML IV PRN ×3 (10:31→15:06)
--- NOTE | 2017-04-22 12:52 | EKG ---
Date Performed: 04/21/2017 Time Performed: 22:40:30 PTAGE: 41 years EKG: SINUS TACHYCARDIA ABNORMAL RHYTHM ECG Compared to PREVIOUS TRACING , heart rate is faster, otherwise no significant change. PREVIOUS TRACIN 09/26/2015 23.01 DOCTOR: Bora Najera Interpretating Date/Time 04/22/2017 12:51:34
[2017-04-22] MEDS: POTASSIUM PHOSPHATE MONOBASIC 500 MG TAB PO PRN ×2 (15:06→18:17)
--- NOTE | 2017-04-22 18:29 | HHI.CCPN ---
Subjective Remarks/Hospital Course 41-year-old female brought in by ambulance from home unresponsive as a potential drug overdose. According to EMS the patient was found by her son unresponsive in her bedroom with empty pill bottles nearby. EMS reports that the son stated that she has been making suicidal statements lately. They gave her 0.4 mg of Narcan 2 without any improvement in mental status. They did note pinpoint pupils and sonorous respirations with decreased respiratory rate. They attempted to intubate her by pretreating her with 20 mg of etomidate and 2 mg of Versed, however they were unable to unhinge her jaw, so intubation was not attempted. Upon arrival to the emergency department the patient's respirations were assisted by BVM. She was unresponsive. She was given 4 mg of IV Narcan upon arrival with only minimal improvement in mentation as well as response to painful stimuli. Patient was forming in her mouth and not protecting her airway. Therefore she was intubated by ED attending for airway protection. Subjective: 04/22: Patient remains sedated and intubated. Noted hypertensive, patient was noted to be positive for amphetamine. PRN labetalol ordered. Objective Vital Signs Date Time Temp Pulse Resp B/P (MAP) Pulse Ox O2 Delivery O2 Flow Rate FiO2 04/22/17 16:00 80 04/22/17 16:00 98.1 14 162/104 (123) 100 04/22/17 14:27 35 04/21/17 23:13 Ventilator Intake and Output 04/22/17 04/22/17 04/23/17 08:00 16:00 00:00 Intake Total 2705.2 ml Output Total 650 ml Balance 2055.2 ml Result Diagram: 04/22/17 0748 04/22/17 0748 Other Results Laboratory Tests Test 04/21/17 23:50 Blood Gas Puncture Site RT FEMORAL Blood Gas Patient Temperature 98.6 Blood Gas HCO3 20 mmol/L (22-26) Blood Gas Base Excess -4.1 mmol/L (-2-2) Blood Gas Oxygen Saturation 99 % (90-100) Arterial Blood pH 7.40 (7.380-7.420) Arterial Blood Partial Pressure CO2 32 mmHg (38-42) Arterial Blood Partial Pressure O2 388 mmHG (61-120) Arterial Blood Oxygen Content 18.6 Vol % (12.0-20.0) Arterial Blood Carboxyhemoglobin 0.6 % (0-4) Arterial Blood Methemoglobin 0.7 % (0-2) Blood Gas Hemoglobin 12.7 G/DL (12.0-16.0) Oxygen Delivery Device VENTILATOR Blood Gas Ventilator Setting Blood Gas Inspired Oxygen 70 % Imaging Last Impressions Head CT 04/21/172241 Signed Impressions: Service Date/Time: Saturday, April 22, 2017 09:43 - CONCLUSION: No acute disease. Margarita Ware MD Chest X-Ray 04/21/172241 Signed Impressions: Service Date/Time: Friday, April 21, 2017 23:04 - CONCLUSION: 1. Lungs are clear. Heart size is normal. 2. Appropriate position of life support tubes. Nirmal Green MD Objective Remarks GENERAL: Well-nourished, well-developed patient of appropriate stated age. Sedated and intubated SKIN: Warm and dry. HEAD: Normocephalic. EYES: No scleral icterus. No injection or drainage. Pupils are 3 mm bilaterally and sluggishly reactive NECK: Supple, trachea midline. No JVD or lymphadenopathy. CARDIOVASCULAR: Regular rate and rhythm without murmurs, gallops, or rubs. RESPIRATORY: Breath sounds equal bilaterally. No accessory muscle use. GASTROINTESTINAL: Abdomen soft, non-tender, nondistended. MUSCULOSKELETAL: No cyanosis, or edema. BACK: Nontender without obvious deformity. NEURO EXAM: GCS: M 5 Vt E2 Mental Status: The patient is sedated and intubated, she moves all 4 extremities spontaneously however not following commands. A/P Assessment and Plan Respiratory failure - Intubated for an airway protection - Vent bundle - Mechanical ventilation - No weaning until neurologically improved - DuoNeb's when necessary Overdose - Unclear substance - Toxicology screen positive for nephropathy demeans - Neuro checks per unit protocol - Supportive care - Aggressive IV hydration Depressions - Psych evaluation when extubated - Risperdal Hypertension - Labatelol, and hydralazine PRN for SBP > 160mmHg Hypothyroidism - Levothyroxine - TSH level in a.m. DVT GI prophylaxis - Teds SCDs - Lovenox - Pepcid Dispo: my billing statement This patient remains critically ill with one or more organ systems which are or may become a threat to life. I have spent in excess of 35 minutes discontinuously in the care and management of this patient. This time is exclusive of procedures, and includes, but is not limited to, evaluation of the patient, review of the medical record, discussions with family, consultants, nursing staff, or respiratory therapy, and documentation in the medical record. Physician Nallely Goddard MD Apr 22, 2017 18:29
[2017-04-22] MEDS ORDERED: LABETALOL HCL 100 MG/20 ML VIAL IV PUSH PRN (18:30)
[2017-04-22] MEDS ORDERED: hydrALAZINE HCL 20 MG/ML VIAL IV PUSH PRN (18:30)
[2017-04-22] MEDS ORDERED: GLUCAGON 1 MG/ML VIAL OTHER PRN (18:45)
[2017-04-22] MEDS ORDERED: DEXTROSE 50% IN WATER 50 ML VIAL(D50) IV PUSH PRN (18:45)
[2017-04-22] MEDS: ATORVASTATIN 20 MG TAB PO SCH (20:41)
[2017-04-22] MEDS: TAMSULOSIN HCL 0.4 MG CAP PO SCH (20:46)
[2017-04-22] MEDS: INSULIN NovoLIN REGULAR SUPPLEMENTAL SCALE SQ SCH (21:00)
[2017-04-23] VITALS (24 sets, daily range): BP systolic 77–133; BP diastolic 44–80; PULSE 61–109; RESP 12–22; TEMP 96.6–98.5; O2SAT 95–100
[2017-04-23] MEDS: PROPOFOL 1000 MG/100 ML INJ 100 ML IV PRN ×4 (00:56→20:21)
[2017-04-23] MEDS: SODIUM CHLOR 0.9% 1000 ML INJ 1,000 ML IV SCH ×3 (00:56→21:58)
[2017-04-23] MEDS: CHLORHEXIDINE GLUCONATE 2 % 1 PACK (2 CLOTHS) TOP SCH (04:00)
[2017-04-23] MEDS: RESP: ALBUTEROL 2.5 MG/IPRATROPIUM 0.5 MG NEB (SCH) INH ×4 (04:15→21:16)
[2017-04-23] MEDS: ENOXAPARIN SODIUM 40 MG/0.4 ML SYRINGE SQ SCH (04:34)
[2017-04-23] MEDS: LEVOTHYROXINE SODIUM 125 MCG TAB PO SCH (04:34)
[2017-04-23 05:30] LABS: AUTOMATED NEUTROPHIL # 8.4 TH/MM3 (1.8-7.7); BASOPHIL % 0.3 % (0.0-2.0); EOSINOPHIL % 0.2 % (0.0-4.0); HEMATOCRIT 39.3 % (35.0-46.0); HEMOGLOBIN 13.5 GM/DL (11.6-15.3); LYMPH % 10.4 % (9.0-44.0); LYMPHOCYTE # 1.1 TH/MM3 (1.0-4.8); MEAN CELL VOLUME 88.4 FL (80.0-100.0); MEAN CORPUSCULAR HEMOGLOBIN 30.4 PG (27.0-34.0); MEAN CORPUSCULAR HGB CONC 34.3 % (32.0-36.0); MEAN PLATELET VOLUME 9.3 FL (7.0-11.0); MONO % 6.8 % (0.0-8.0); MONOCYTE # 0.7 TH/MM3 (0-0.9); NEUT % 82.3 % (16.0-70.0); PLATELET COUNT 219 TH/MM3 (150-450); RED BLOOD COUNT 4.45 MIL/MM3 (4.00-5.30); RED CELL DISTRIBUTION WIDTH 13.3 % (11.6-17.2); WHITE BLOOD COUNT 10.2 TH/MM3 (4.0-11.0)
[2017-04-23 05:59] LABS: ALBUMIN 3.1 GM/DL (3.4-5.0); ALKALINE PHOSPHATASE 97 U/L (45-117); ALT (GPT) 29 U/L (10-53); AST (GOT) 24 U/L (15-37); BICARBONATE 20.6 MEQ/L (21.0-32.0); BLOOD UREA NITROGEN 5 MG/DL (7-18); CALCIUM 8.4 MG/DL (8.5-10.1); CHLORIDE 106 MEQ/L (98-107); CREATININE 0.65 MG/DL (0.50-1.00); GLOMERULAR FILTRATION RATE 100 ML/MIN (>89); GLUCOSE,RANDOM 97 MG/DL (74-106); MAGNESIUM 1.8 MG/DL (1.5-2.5); PHOSPHORUS 4.2 MG/DL (2.5-4.9); SODIUM (NA) 141 MEQ/L (136-145); TOTAL BILIRUBIN ADULT 0.5 MG/DL (0.2-1.0); TOTAL PROTEIN 6.4 GM/DL (6.4-8.2)
[2017-04-23] MEDS: POTASSIUM CHLOR 20 MEQ PREMIX 100 ML IV PRN (06:14)
--- NOTE | 2017-04-23 06:46 | RADRPT ---
EXAM DATE/TIME: 04/23/2017 04:28 [facility] COMPARISON: CHEST SINGLE AP, April 21, 2017, 23:04. INDICATIONS : Shortness of breath, possible pulmonary disease. MEDICAL HISTORY : None. SURGICAL HISTORY : None. ENCOUNTER: Subsequent ACUITY: 2 days PAIN SCORE: Non-responsive. LOCATION: Bilateral chest FINDINGS: A single view of the chest demonstrates the lungs to be symmetrically aerated without evidence of mas s, infiltrate or effusion. The cardiomediastinal contours are unremarkable. Osseous structures are intact. ET tube tip 2.3 cm above the ja. Gastric tube tip and side-port project within the stom ach. CONCLUSION: The lungs are clear. Adan Dumas MD on April 23, 2017 at 6:44 Board Certified Radiologist. This report was verified electronically.
[2017-04-23] MEDS: INSULIN NovoLIN REGULAR SUPPLEMENTAL SCALE SQ SCH ×4 (08:00→21:00)
[2017-04-23] MEDS: CHLORHEXIDINE 0.12% (ORAL KIT) 15 ML CUP MT SCH ×2 (08:00→20:46)
[2017-04-23] MEDS: ARTIFICIAL TEARS OPTH SOLN 15 ML BTL EACH EYE SCH ×3 (08:44→18:06)
[2017-04-23] MEDS: DICYCLOMINE HCL 20 MG TAB PO SCH ×4 (08:44→20:44)
[2017-04-23] MEDS: DOCUSATE SODIUM 50 MG/SENNA 8.6 MG TAB PO SCH ×2 (08:44→20:45)
[2017-04-23] MEDS: CIPROFLOXACIN 500 MG TAB PO SCH ×2 (08:44→20:44)
[2017-04-23] MEDS: risperiDONE 0.5 MG TAB PO SCH ×2 (08:44→20:45)
[2017-04-23] MEDS: metroNIDAZOLE 500 MG TAB PO SCH ×3 (08:44→18:06)
[2017-04-23] MEDS: FAMOTIDINE 20 MG/2 ML VIAL IV PUSH SCH ×2 (08:44→20:44)
[2017-04-23] MEDS: SODIUM CHLORIDE 0.9% FLUSH 10 ML FLUSH IV FLUSH SCH ×2 (08:45→20:44)
[2017-04-23] MEDS: MIDAZOLAM 100 MG/100 ML INJ 100 ML IV PRN (08:46)
[2017-04-23] MEDS ORDERED: DEXMEDETOMIDINE INJ 200 MCG in SODIUM CHLORIDE 0.9% INJ 50 ML IV PRN (11:30)
--- NOTE | 2017-04-23 11:36 | PD.PSY.CON ---
Provisional Diagnosis Admission Date Apr 21, 2017 at 23:39 [place] I. MDD, ADHD, alcohol use disorder [place] II. Deferred History of Present Illness Service Psychiatry Consult Requested By Critical care Reason for Consult Suicidal attempt Primary Care Physician Britton Rod M.D. 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 According to EMS the patient was found by her son unresponsive in her bedroom with empty pill bottles nearby. EMS reports that the son stated that she has been making suicidal statements lately. They gave her 0.4 mg of Narcan 2 without any improvement in mental status. They did note pinpoint pupils and sonorous respirations with decreased respiratory rate. They attempted to intubate her by pretreating her with 20 mg of etomidate and 2 mg of Versed, however they were unable to unhinge her jaw, so intubation was not attempted. Upon arrival to the emergency department the patient's respirations were assisted by BVM. She was unresponsive. She was given 4 mg of IV Narcan upon arrival with only minimal improvement in mentation as well as response to painful stimuli. Patient was consulted to psychiatry to address suicidal attempts. Chart was reviewed. Collateral information from her boyfriend Azalea Thomas, , was obtained. The patient was unable to participate in the psychiatric assessment at this moment because she is intubated and sedated. Her boyfriend clarifies that the patient has been making suicidal statements and gestures in the last days. He does not have details about her recent suicidal attempt, but he clarifies that they have been having multiple arguments in the last week, they actually have been and she has been in a lot of stress. He clarifies that the patient has a psychiatric history of suicidal attempts, the patient is impulsive, with moments of mood swings, depression, she is very sensitive and unable to tolerate frustration and she tends to abuse alcohol. He also states that the patient is taking amphetamines prescribed for ADHD by her PCP. Review of Systems ROS Limitations: Intubated Past Family Social History Coded Allergies: Sulfa (Sulfonamide Antibiotics) (Unverified Allergy, Severe, N/V, 04/21/17) morphine (Unverified Allergy, Severe, RESP PROBLEMS, 04/21/17) Active Scripts Ibuprofen (Ibuprofen) 600 Mg Tab, 600 MG PO Q6H Y for Pain/Inflammation, #40 TAB 0 Refills Prov:Desiree Wilder MD 03/03/17 Reported Medications Risperidone (Risperidone) 0.5 Mg Tab, 0.5 MG PO Q12HR, #60 TAB 0 Refills 04/21/17 Promethazine (Promethazine) 12.5 Mg Tab, 12.5 MG PO Q8HR Y for NAUSEA OR VOMITING, TAB 0 Refills 04/21/17 Tamsulosin (Tamsulosin) 0.4 Mg Cap, 0.8 MG PO HS for Manage Prostate Problems, # 60 CAP 0 Refills 04/21/17 Omeprazole (Omeprazole) 20 Mg Tab, 20 MG PO DAILY, #30 TAB 0 Refills 04/21/17 Meloxicam (Meloxicam) 15 Mg Tab, 15 MG PO DAILY for Arthritis Pain, #30 TAB 0 Refills 04/21/17 Ciprofloxacin (Cipro) 500 Mg Tab, 500 MG PO BID for Infection, TAB 0 Refills 04/21/17 Dicyclomine (Dicyclomine) 20 Mg Tab, 20 MG PO QID for Bowel Management, #120 TAB 0 Refills 04/21/17 Metronidazole (Flagyl) 500 Mg Tab, 500 MG PO TID for Infection, TAB 0 Refills 04/21/17 Amphetamine-Dextroamphetamine (Adderall) 5 Mg Tab, 5 MG PO DAILY for Hyperactivity Control, #30 TAB 0 Refills Avoid late evening doses. Space doses at least 4 to 6 hours if more than once/day dosing. 03/03/17 Levothyroxine (Levothyroxine) 125 Mcg Tab, 125 MCG PO DAILY for Thyroid, #30 TAB 0 Refills 03/03/17 Lisinopril (Lisinopril) 10 Mg Tab, 10 MG PO DAILY Y for HYPERTENSION, #30 TAB 0 Refills 03/03/17 Atorvastatin (Lipitor) 20 Mg Tab, 20 MG PO HS for Cholesterol Management, #30 TAB 0 Refills 12/10/15 Current Medications Medications (Trade) Dose Ordered Sig/Yue Route Start Time Stop Time Status Last Admin (NS Flush) 2 ml UNSCH PRN IVF 04/21/17 22:45 Propofol 100 ml @ 0 mls/hr TITRATE PRN IV 04/21/17 22:45 04/23/17 08:45 (Lipitor) 20 mg HS PO 04/22/17 21:00 04/22/17 20:41 (Cipro) 500 mg BID PO 04/22/17 09:00 04/23/17 08:44 (Bentyl) 20 mg QID PO 04/22/17 09:00 04/23/17 08:44 (Synthroid) 125 mcg DAILY@0600 PO 04/22/17 06:00 04/23/17 04:34 (Prinivil) 10 mg DAILY PRN PO 04/22/17 00:30 Future Hold 04/22/17 12:16 (Flagyl) 500 mg TID PO 04/22/17 09:00 04/23/17 08:44 (risperDAL) 0.5 mg Q12HR PO 04/22/17 09:00 04/23/17 08:44 (Flomax) 0.8 mg HS PO 04/22/17 21:00 04/22/17 20:46 Sodium Chloride 1,000 ml @ 84 mls/hr [id number] IV 04/22/17 00:23 04/23/17 00:56 (NS Flush) 2 ml UNSCH PRN IV FLUSH 04/22/17 00:30 (NS Flush) 2 ml BID IV FLUSH 04/22/17 09:00 04/23/17 08:45 (Tylenol) 650 mg Q6H PRN PO 04/22/17 00:30 (Pepcid Inj) 20 mg Q12HR IV PUSH 04/22/17 09:00 04/23/17 08:44 (Versed Inj) 2 mg Q1H PRN IV PUSH 04/22/17 00:30 (Tears Naturale Opth Soln) 1 drop TID EACH EYE 04/22/17 09:00 04/23/17 08:44 (Zofran Inj) 4 mg Q6H PRN IV PUSH 04/22/17 00:30 (Duoneb Neb) 1 ampule Q6HR NEB INH 04/22/17 04:00 04/23/17 08:34 (Duoneb Neb) 1 ampule Q2HR NEB PRN INH 04/22/17 00:30 (Lovenox Inj) 40 mg Q24H SQ 04/22/17 06:00 04/23/17 04:34 Miscellaneous Information 1 Q361D XX 04/22/17 00:30 04/22/17 00:30 (Chlorhexidine 2% Cloth) 3 pack Taper DAILY@04 TOP 04/22/17 04:00 04/18/18 03:59 04/23/17 04:00 (Chlorhexidine 2% Cloth) 3 pack UNSCH PRN TOP 04/22/17 00:30 (Karen-Colace) 1 tab BID PO 04/22/17 09:00 04/23/17 08:44 (Milk Of Magnesia Liq) 30 ml Q12H PRN PO 04/22/17 00:30 (Senokot) 17.2 mg Q12H PRN PO 04/22/17 00:30 (Dulcolax Supp) 10 mg DAILY PRN RECTAL 04/22/17 00:30 (Lactulose Liq) 30 ml DAILY PRN PO 04/22/17 00:30 (Peridex 0.12% Liq) 15 ml BID@08,20 MT 04/22/17 08:00 04/23/17 08:00 Propofol 100 ml @ 2.55 mls/hr TITRATE PRN IV 04/22/17 00:30 Midazolam HCl 100 ml @ 2 mls/hr TITRATE PRN IV 04/22/17 00:30 04/23/17 08:46 Potassium Chloride 100 ml @ 50 mls/hr Q2H PRN IV 04/22/17 00:45 Potassium Chloride 100 ml @ 50 mls/hr Q2H PRN IV 04/22/17 00:45 04/23/17 06:14 (K-Lyte Cl Eff) 50 meq UNSCH PRN PO 04/22/17 00:45 Potassium Chloride 100 ml @ 25 mls/hr UNSCH PRN IV 04/22/17 00:45 Potassium Chloride 100 ml @ 50 mls/hr Q2H PRN IV 04/22/17 00:45 Magnesium Sulfate 4 gm/Sodium Chloride 100 ml @ 50 mls/hr UNSCH PRN IV 04/22/17 00:45 (Mag-Ox) 800 mg UNSCH PRN PO 04/22/17 00:45 Magnesium Sulfate 2 gm/Sodium Chloride 100 ml @ 50 mls/hr UNSCH PRN IV 04/22/17 00:45 (K-Phos) 2,000 mg Q4H PRN PO 04/22/17 00:45 04/22/17 18:17 Sodium Phosphate 30 mmol/Sodium Chloride 250 ml @ 42 mls/hr UNSCH PRN IV 04/22/17 00:45 (K-Phos) 2,000 mg UNSCH PRN PO/TUBE 04/22/17 00:45 Potassium Phosphate 30 mmol/ Sodium Chloride 260 ml @ 42 mls/hr UNSCH PRN IV 04/22/17 00:45 (Trandate Inj) 10 mg Q6H PRN IV PUSH 04/22/17 18:30 (Apresoline Inj) 20 mg Q4H PRN IV PUSH 04/22/17 18:30 04/22/17 20:40 (D50w (Vial) Inj) 50 ml UNSCH PRN IV PUSH 04/22/17 18:45 04/22/17 19:26 (Glucagon Inj) 1 mg UNSCH PRN OTHER 04/22/17 18:45 (NovoLIN R SUPPLEMENTAL SCALE) 1 ACHS SLIDING SCALE SQ 04/22/17 21:00 Calcium Gluconate 1 gm/Sodium Chloride 110 ml @ 110 mls/hr ONCE ONCE IV 04/23/17 12:00 04/23/17 12:59 Dexmedetomidine HCl 200 mcg/ Sodium Chloride 52 ml @ 4.03 mls/hr TITRATE PRN IV 04/23/17 11:30 UNV Family Psych History No family psychiatric history Social History Patient was born and raised in [place], she lives with her sons, 21 and 19 , in [facility], 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 2) Under observation Physical Exam Vital Signs Vital Signs Date Time Temp Pulse Resp B/P (MAP) Pulse Ox O2 Delivery O2 Flow Rate FiO2 04/23/17 11:20 100 35 04/23/17 06:00 92 04/23/17 04:00 96.6 15 102/56 (71) 04/21/17 23:13 Ventilator I/O 04/23/17 04/23/17 04/24/17 08:00 16:00 00:00 Intake Total 1846 ml 331 ml Output Total 650 ml Balance 1196 ml 331 ml Lab Results Test 04/23/17 04:17 White Blood Count 10.2 TH/MM3 Red Blood Count 4.45 MIL/MM3 Hemoglobin 13.5 GM/DL Hematocrit 39.3 % Mean Corpuscular Volume 88.4 FL Mean Corpuscular Hemoglobin 30.4 PG Mean Corpuscular Hemoglobin Concent 34.3 % Red Cell Distribution Width 13.3 % Platelet Count 219 TH/MM3 Mean Platelet Volume 9.3 FL Neutrophils (%) (Auto) 82.3 % Lymphocytes (%) (Auto) 10.4 % Monocytes (%) (Auto) 6.8 % Eosinophils (%) (Auto) 0.2 % Basophils (%) (Auto) 0.3 % Neutrophils # (Auto) 8.4 TH/MM3 Lymphocytes # (Auto) 1.1 TH/MM3 Monocytes # (Auto) 0.7 TH/MM3 Eosinophils # (Auto) 0.0 TH/MM3 Basophils # (Auto) 0.0 TH/MM3 CBC Comment AUTO DIFF Differential Comment AUTO DIFF CONFIRMED Prothrombin Time 10.0 SEC Prothromb Time International Ratio 1.0 RATIO Activated Partial Thromboplast Time 22.1 SEC Blood Urea Nitrogen 5 MG/DL Creatinine 0.65 MG/DL Random Glucose 97 MG/DL Total Protein 6.4 GM/DL Albumin 3.1 GM/DL Calcium Level 8.4 MG/DL Phosphorus Level 4.2 MG/DL Magnesium Level 1.8 MG/DL Alkaline Phosphatase 97 U/L Aspartate Amino Transf (AST/SGOT) 24 U/L Alanine Aminotransferase (ALT/SGPT) 29 U/L Total Bilirubin 0.5 MG/DL Sodium Level 141 MEQ/L Potassium Level 3.5 MEQ/L Chloride Level 106 MEQ/L Carbon Dioxide Level 20.6 MEQ/L Anion Gap 14 MEQ/L Estimat Glomerular Filtration Rate 100 ML/MIN Mental Status Examination Insight: Poor Judgment: Poor Mental Status Exam Remarks Limited because the patient is intubated Assessment & Plan Problem List: (1) Depression ICD Codes: F32.9 - Major depressive disorder, single episode, unspecified Status: Acute Assessment & Plan: At the moment of this evaluation the patient is intubated, unable to participate in the psychiatric assessment. However, as per collateral information from her boyfriend, the patient has been making multiple suicidal statements in the last weeks, she has been repeatedly saying that she is going to kill herself, the patient has been in a lot of stress due to problems with her boyfriend, also conference with 1 of her sounds. At this moment the most important is to stabilize the patient medically, but once medically stable, the patient can be transferred to psychiatry for safety and stabilization. No psychotropics indicated at this moment. We will follow up. Assessment & Plan Estimated LOS: days Problem Qualifiers (1) Depression: Kraig Pugh MD Apr 23, 2017 11:36
[2017-04-23] MEDS ORDERED: CALCIUM GLUCONATE INJ 1 GM in SODIUM CHLORIDE 0.9% INJ 100 ML IV ONE (12:00)
[2017-04-23] MEDS ORDERED: RASS Change Order XX ONE ×2 (12:30)
--- NOTE | 2017-04-23 13:17 | HHI.CCPN ---
Subjective Remarks/Hospital Course 41-year-old female brought in by ambulance from home unresponsive as a potential drug overdose. According to EMS the patient was found by her son unresponsive in her bedroom with empty pill bottles nearby. EMS reports that the son stated that she has been making suicidal statements lately. They gave her 0.4 mg of Narcan 2 without any improvement in mental status. They did note pinpoint pupils and sonorous respirations with decreased respiratory rate. They attempted to intubate her by pretreating her with 20 mg of etomidate and 2 mg of Versed, however they were unable to unhinge her jaw, so intubation was not attempted. Upon arrival to the emergency department the patient's respirations were assisted by BVM. She was unresponsive. She was given 4 mg of IV Narcan upon arrival with only minimal improvement in mentation as well as response to painful stimuli. Patient was forming in her mouth and not protecting her airway. Therefore she was intubated by ED attending for airway protection. Subjective: 04/22: Patient remains sedated and intubated. Noted hypertensive, patient was noted to be positive for amphetamine. PRN labetalol ordered. 04/23: Afebrile .Acute events overnight. The patient received hydralazine in 2 intermittent doses for systolic blood pressure greater than 160mmHg. CPAP trials initiated this afternoon with SBT parameters to be obtained. Plan is for possible extubation today. Sedation has been discontinued and the patient has been placed on low-dose Precedex in anticipation for CPAP trials and SBT parameters. Objective Vital Signs Date Time Temp Pulse Resp B/P (MAP) Pulse Ox O2 Delivery O2 Flow Rate FiO2 04/23/17 12:22 35 04/23/17 11:20 100 04/23/17 06:00 92 04/23/17 04:00 96.6 15 102/56 (71) 04/21/17 23:13 Ventilator Intake and Output 04/23/17 04/23/17 04/24/17 08:00 16:00 00:00 Intake Total 1846 ml 331 ml Output Total 650 ml Balance 1196 ml 331 ml Result Diagram: 04/23/17 0417 04/23/17 0417 Imaging Last Impressions Chest X-Ray 04/23/17 0000 Signed Impressions: Service Date/Time: Sunday, April 23, 2017 04:28 - CONCLUSION: The lungs are clear. Adan Dumas MD Head CT 04/21/172241 Signed Impressions: Service Date/Time: Saturday, April 22, 2017 09:43 - CONCLUSION: No acute disease. Margarita Ware MD Last Impressions Head CT 04/21/172241 Signed Impressions: Service Date/Time: Saturday, April 22, 2017 09:43 - CONCLUSION: No acute disease. Margarita Ware MD Chest X-Ray 04/21/172241 Signed Impressions: Service Date/Time: Friday, April 21, 2017 23:04 - CONCLUSION: 1. Lungs are clear. Heart size is normal. 2. Appropriate position of life support tubes. Nirmal Green MD Objective Remarks GENERAL: Well-nourished, well-developed patient of appropriate stated age. Currently on CPAP trials SKIN: Warm and dry. HEAD: Normocephalic. EYES: No scleral icterus. No injection or drainage. Pupils are 3 mm bilaterally and reactive NECK: Supple, trachea midline. No JVD or lymphadenopathy. CARDIOVASCULAR: Regular rate and rhythm without murmurs, gallops, or rubs. RESPIRATORY: Breath sounds equal bilaterally. No accessory muscle use. GASTROINTESTINAL: Abdomen soft, non-tender, nondistended. MUSCULOSKELETAL: No cyanosis, or edema. BACK: Nontender without obvious deformity. NEURO EXAM: GCS: M 5 Vt E2 Mental Status: RASS -1 she moves all 4 extremities spontaneously but not following commands. A/P Assessment and Plan Respiratory failure - Intubated for an airway protection - Vent bundle - Mechanical ventilation - No weaning until neurologically improved - DuoNeb's when necessary -04/23-CPAP trials initiated-Precedex infusion Overdose - Unclear substance - Toxicology screen positive for amphetamines - Neuro checks per unit protocol - Supportive care - IV hydration-normal saline 84 cc/hour Depression - Psych evaluation when extubated - Risperdal Hypertension - Labetalol, and hydralazine PRN for SBP > 160mmHg Hypothyroidism - Levothyroxine - TSH level 2.170 thin normal limits DVT GI prophylaxis - Teds SCDs - Lovenox - Pepcid Dispo: Level III follow-up. Discussed with ASTRO TECHNICIAN at bedside (Bonilla) Attempted phone call to Mr. Michelle Case (father) to provide medical status update at [phone], unsuccessful. Left message to contact the ICU for update. Telephoned call or contact centre manager, William Almanzar [phone] provided medical status update for plan for CPAP trials possibly SBT, possible extubation if successful. All questions answered. Physician Nallely Goddard MD Apr 23, 2017 13:17
[2017-04-23] MEDS ORDERED: MIDAZOLAM 100 MG/100 ML INJ 100 ML IV PRN (17:30)
[2017-04-23] MEDS: ATORVASTATIN 20 MG TAB PO SCH (20:45)
[2017-04-23] MEDS: TAMSULOSIN HCL 0.4 MG CAP PO SCH (20:45)
[2017-04-23] MEDS ORDERED: DEXMEDETOMIDINE INJ 400 MCG in SODIUM CHLORIDE 0.9% INJ 96 ML IV PRN (21:00)
[2017-04-24] VITALS (24 sets, daily range): BP systolic 95–146; BP diastolic 54–83; PULSE 70–130; RESP 11–31; TEMP 98.8–99.6; O2SAT 96–100
[2017-04-24] MEDS: SODIUM CHLOR 0.9% 1000 ML INJ 1,000 ML IV SCH ×2 (03:06→21:29)
[2017-04-24] MEDS: ACETAMINOPHEN 325 MG TAB PO PRN (03:07)
[2017-04-24] MEDS: CHLORHEXIDINE GLUCONATE 2 % 1 PACK (2 CLOTHS) TOP SCH (03:18)
[2017-04-24] MEDS: RESP: ALBUTEROL 2.5 MG/IPRATROPIUM 0.5 MG NEB (SCH) INH ×3 (03:49→21:54)
[2017-04-24] MEDS: PROPOFOL 1000 MG/100 ML INJ 100 ML IV PRN (04:39)
[2017-04-24 04:50] LABS: HEMATOCRIT 35.7 % (35.0-46.0); HEMOGLOBIN 12.2 GM/DL (11.6-15.3); MEAN CELL VOLUME 87.9 FL (80.0-100.0); MEAN CORPUSCULAR HEMOGLOBIN 30.1 PG (27.0-34.0); MEAN CORPUSCULAR HGB CONC 34.2 % (32.0-36.0); PLATELET COUNT 214 TH/MM3 (150-450); RED BLOOD COUNT 4.06 MIL/MM3 (4.00-5.30)
--- NOTE | 2017-04-24 04:52 | RADRPT ---
EXAM DATE/TIME: 04/24/2017 02:59 [facility] COMPARISON: CHEST SINGLE AP, April 23, 2017, 4:28. INDICATIONS : Short of breath. MEDICAL HISTORY : None. SURGICAL HISTORY : None. ENCOUNTER: Subsequent ACUITY: 3 days PAIN SCORE: 0/10 LOCATION: Bilateral chest FINDINGS: ET tube tip 2.3 cm above the ja. Gastric tube traverses the [id number]. The lungs are symmet rically aerated and clear. The heart is normal in size. CONCLUSION: The lungs are clear. Adan Dumas MD on April 24, 2017 at 4:50 Board Certified Radiologist. This report was verified electronically.
[2017-04-24 05:10] LABS: BICARBONATE 20.8 MEQ/L (21.0-32.0); CALCIUM 8.2 MG/DL (8.5-10.1); CREATININE 0.53 MG/DL (0.50-1.00)
[2017-04-24 05:15] LABS: PHOSPHORUS 2.6 MG/DL (2.5-4.9)
[2017-04-24] MEDS: LEVOTHYROXINE SODIUM 125 MCG TAB PO SCH (05:35)
[2017-04-24] MEDS: ENOXAPARIN SODIUM 40 MG/0.4 ML SYRINGE SQ SCH (05:36)
[2017-04-24] MEDS: POTASSIUM CHLOR 20 MEQ PREMIX 100 ML IV PRN ×2 (06:47→13:31)
[2017-04-24] MEDS: INSULIN NovoLIN REGULAR SUPPLEMENTAL SCALE SQ SCH ×4 (08:00→21:00)
[2017-04-24] MEDS: CHLORHEXIDINE 0.12% (ORAL KIT) 15 ML CUP MT SCH ×2 (08:00→19:49)
[2017-04-24] MEDS: FAMOTIDINE 20 MG/2 ML VIAL IV PUSH SCH ×2 (08:16→21:25)
[2017-04-24] MEDS: DOCUSATE SODIUM 50 MG/SENNA 8.6 MG TAB PO SCH ×2 (08:16→21:00)
[2017-04-24] MEDS: risperiDONE 0.5 MG TAB PO SCH ×2 (08:16→21:00)
[2017-04-24] MEDS: metroNIDAZOLE 500 MG TAB PO SCH ×3 (08:16→17:20)
[2017-04-24] MEDS: SODIUM CHLORIDE 0.9% FLUSH 10 ML FLUSH IV FLUSH SCH ×2 (08:16→21:25)
[2017-04-24] MEDS: CIPROFLOXACIN 500 MG TAB PO SCH ×2 (08:16→21:00)
[2017-04-24] MEDS: ARTIFICIAL TEARS OPTH SOLN 15 ML BTL EACH EYE SCH ×3 (08:16→17:20)
[2017-04-24] MEDS: DICYCLOMINE HCL 20 MG TAB PO SCH ×4 (08:16→21:00)
[2017-04-24] MEDS ORDERED: fentaNYL 2,500 MCG/NS 250 ML IV PRN (09:00)
--- NOTE | 2017-04-24 10:53 | HHI.CCPN ---
Subjective Remarks/Hospital Course 41-year-old female brought in by ambulance from home unresponsive as a potential drug overdose. According to EMS the patient was found by her son unresponsive in her bedroom with empty pill bottles nearby. EMS reports that the son stated that she has been making suicidal statements lately. They gave her 0.4 mg of Narcan 2 without any improvement in mental status. They did note pinpoint pupils and sonorous respirations with decreased respiratory rate. They attempted to intubate her by pretreating her with 20 mg of etomidate and 2 mg of Versed, however they were unable to unhinge her jaw, so intubation was not attempted. Upon arrival to the emergency department the patient's respirations were assisted by BVM. She was unresponsive. She was given 4 mg of IV Narcan upon arrival with only minimal improvement in mentation as well as response to painful stimuli. Patient was forming in her mouth and not protecting her airway. Therefore she was intubated by ED attending for airway protection. Subjective: 04/22: Patient remains sedated and intubated. Noted hypertensive, patient was noted to be positive for amphetamine. PRN labetalol ordered. 04/23: Afebrile .Acute events overnight. The patient received hydralazine in 2 intermittent doses for systolic blood pressure greater than 160mmHg. CPAP trials initiated this afternoon with SBT parameters to be obtained. Plan is for possible extubation today. Sedation has been discontinued and the patient has been placed on low-dose Precedex in anticipation for CPAP trials and SBT parameters. 04/24: No acute events overnight. Patient failed SBT with parameters, with NIF - 15 yesterday. CPAP trials initiated this a.m., plan for repeat SBT parameters for possible extubation. Hemodynamically stable. Objective Vital Signs Date Time Temp Pulse Resp B/P (MAP) Pulse Ox O2 Delivery O2 Flow Rate FiO2 04/24/17 10:00 92 04/24/17 10:00 15 118/70 (86) 99 04/24/17 09:21 35 04/24/17 08:00 99.0 04/21/17 23:13 Ventilator Intake and Output 04/24/17 04/24/17 04/25/17 08:00 16:00 00:00 Intake Total 794.7 ml 19 ml Output Total 500 ml Balance 294.7 ml 19 ml Result Diagram: 04/24/17 0346 04/24/17 0346 Imaging Last Impressions Chest X-Ray 04/24/17 0600 Signed Impressions: Service Date/Time: Monday, April 24, 2017 02:59 - CONCLUSION: The lungs are clear. Adan Dumas MD Head CT 04/21/17 224 Signed Impressions: Service Date/Time: Saturday, April 22, 2017 09:43 - CONCLUSION: No acute disease. Margarita Ware MD Last Impressions Chest X-Ray 04/23/17 0000 Signed Impressions: Service Date/Time: Sunday, April 23, 2017 04:28 - CONCLUSION: The lungs are clear. Adan Dumas MD Head CT 04/21/172241 Signed Impressions: Service Date/Time: Saturday, April 22, 2017 09:43 - CONCLUSION: No acute disease. Margarita Ware MD Last Impressions Head CT 04/21/172241 Signed Impressions: Service Date/Time: Saturday, April 22, 2017 09:43 - CONCLUSION: No acute disease. Margarita Ware MD Chest X-Ray 04/21/172241 Signed Impressions: Service Date/Time: Friday, April 21, 2017 23:04 - CONCLUSION: 1. Lungs are clear. Heart size is normal. 2. Appropriate position of life support tubes. Nirmal Green MD Objective Remarks GENERAL: Well-nourished, well-developed patient of appropriate stated age. Currently on CPAP trials SKIN: Warm and dry. HEAD: Normocephalic. EYES: No scleral icterus. No injection or drainage. Pupils are 3 mm bilaterally and reactive NECK: Supple, trachea midline. No JVD or lymphadenopathy. CARDIOVASCULAR: Regular rate and rhythm without murmurs, gallops, or rubs. RESPIRATORY: Breath sounds equal bilaterally. No accessory muscle use. GASTROINTESTINAL: Abdomen soft, non-tender, nondistended. MUSCULOSKELETAL: No cyanosis, or edema. BACK: Nontender without obvious deformity. NEURO EXAM: GCS: M 5 Vt E2 Mental Status: RASS -1 she moves all 4 extremities spontaneously but not following commands. A/P Assessment and Plan Respiratory failure - Intubated for an airway protection - Vent bundle - Mechanical ventilation - No weaning until neurologically improved - DuoNeb's when necessary -04/23-CPAP trials initiated-Precedex infusion, failed NIF -15, repeat CPAP trials reinitiated this a.m., with SBT parameters plan -04/24-chest x-ray-clear, PT parameters RSBI 21, NIF -22,FVC 900 , positive cuff leak. ABG 7.39/32/178/19/-4.4 Overdose - Unclear substance - Toxicology screen positive for amphetamines - Neuro checks per unit protocol - Supportive care - Decrease IV hydration-normal saline 42 cc/hour Depression - Psych evaluation when extubated - Risperdal Hypertension-resolved - Labetalol, and hydralazine PRN for SBP > 160mmHg Hypothyroidism - Levothyroxine - TSH level 2.170 WNL DVT GI prophylaxis - Teds SCDs - Lovenox - Pepcid Dispo: Level 2 follow-up. Discussed with MILL TENDER SECOND OPERATOR at bedside (Bonilla) Discussed with patient's 3 sisters and updated them on patient's status.. Patient has been Quinones acted, plan for transition to [facility] in a.m., possible transfer to inpatient psychiatry medical unit, on psychiatrist's recommendation. Physician Nallely Goddard MD Apr 24, 2017 10:53
[2017-04-24] MEDS ORDERED: fentaNYL DRIP 250 ML IV PRN (11:00)
[2017-04-24] MEDS ORDERED: RESP: RACEPINEPHRINE 2.25% 0.5 ML NEB ONE ×2 (12:20→19:10)
[2017-04-24] MEDS: RESP: ALBUTEROL 2.5 MG/IPRATROPIUM 0.5 MG NEB (PRN) INH (12:23)
[2017-04-24] MEDS ORDERED: MIDAZOLAM HCL 2 MG/2 ML VIAL IV PUSH ONE (12:30)
[2017-04-24] MEDS ORDERED: DEXAMETHASONE SOD PHOS 4 MG/ML VIAL IV PUSH ONE (12:30)
[2017-04-24] MEDS ORDERED: ALPRAZolam 0.25 MG TAB PO STA (14:47)
[2017-04-24] MEDS ORDERED: ONDANSETRON HCL 4 MG/2 ML VIAL IV PUSH PRN (16:15)
[2017-04-24] MEDS ORDERED: RESP: RACEPINEPHRINE 2.25% 0.5 ML NEB NEB ONE (19:15)
[2017-04-24] MEDS: ALPRAZolam 0.25 MG TAB PO PRN ×2 (19:29→21:25)
[2017-04-24] MEDS: TAMSULOSIN HCL 0.4 MG CAP PO SCH (21:00)
[2017-04-24] MEDS: ATORVASTATIN 20 MG TAB PO SCH (21:25)
[2017-04-25] VITALS (14 sets, daily range): BP systolic 122–158; BP diastolic 70–82; PULSE 89–118; RESP 14–39; TEMP 98.9–100.1; O2SAT 94–100
[2017-04-25] MEDS: RESP: ALBUTEROL 2.5 MG/IPRATROPIUM 0.5 MG NEB (PRN) INH ×2 (00:42→11:27)
[2017-04-25] MEDS: ACETAMINOPHEN 325 MG TAB PO PRN (03:07)
[2017-04-25] MEDS: CHLORHEXIDINE GLUCONATE 2 % 1 PACK (2 CLOTHS) TOP SCH (04:00)
[2017-04-25] MEDS: RESP: ALBUTEROL 2.5 MG/IPRATROPIUM 0.5 MG NEB (SCH) INH ×2 (04:11→08:19)
[2017-04-25] MEDS: LEVOTHYROXINE SODIUM 125 MCG TAB PO SCH (06:00)
[2017-04-25] MEDS: ENOXAPARIN SODIUM 40 MG/0.4 ML SYRINGE SQ SCH (06:42)
[2017-04-25] MEDS: CHLORHEXIDINE 0.12% (ORAL KIT) 15 ML CUP MT SCH (08:00)
[2017-04-25] MEDS: INSULIN NovoLIN REGULAR SUPPLEMENTAL SCALE SQ SCH ×2 (08:00→11:40)
[2017-04-25 08:09] LABS: HEMATOCRIT 34.2 % (35.0-46.0); HEMOGLOBIN 11.7 GM/DL (11.6-15.3); MEAN CELL VOLUME 86.8 FL (80.0-100.0); MEAN CORPUSCULAR HEMOGLOBIN 29.6 PG (27.0-34.0); MEAN CORPUSCULAR HGB CONC 34.1 % (32.0-36.0); PLATELET COUNT 262 TH/MM3 (150-450); RED BLOOD COUNT 3.95 MIL/MM3 (4.00-5.30); RED CELL DISTRIBUTION WIDTH 13.1 % (11.6-17.2); WHITE BLOOD COUNT 10.4 TH/MM3 (4.0-11.0)
[2017-04-25 08:28] LABS: BICARBONATE 21.2 MEQ/L (21.0-32.0); CALCIUM 8.6 MG/DL (8.5-10.1); CREATININE 0.5 MG/DL (0.50-1.00); PHOSPHORUS 2.2 MG/DL (2.5-4.9)
[2017-04-25] MEDS: ARTIFICIAL TEARS OPTH SOLN 15 ML BTL EACH EYE SCH ×2 (09:00→11:39)
[2017-04-25] MEDS: DOCUSATE SODIUM 50 MG/SENNA 8.6 MG TAB PO SCH (09:10)
[2017-04-25] MEDS: FAMOTIDINE 20 MG/2 ML VIAL IV PUSH SCH (09:10)
[2017-04-25] MEDS: DICYCLOMINE HCL 20 MG TAB PO SCH ×2 (09:10→11:39)
[2017-04-25] MEDS: SODIUM CHLORIDE 0.9% FLUSH 10 ML FLUSH IV FLUSH SCH (09:10)
[2017-04-25] MEDS: CIPROFLOXACIN 500 MG TAB PO SCH (09:10)
[2017-04-25] MEDS: risperiDONE 0.5 MG TAB PO SCH (09:10)
[2017-04-25] MEDS: metroNIDAZOLE 500 MG TAB PO SCH ×2 (09:10→11:39)
[2017-04-25] MEDS: ALPRAZolam 0.25 MG TAB PO PRN ×2 (09:51→13:13)
--- NOTE | 2017-04-25 13:22 | HHI.CCPN ---
Subjective Remarks/Hospital Course 41-year-old female brought in by ambulance from home unresponsive as a potential drug overdose. According to EMS the patient was found by her son unresponsive in her bedroom with empty pill bottles nearby. EMS reports that the son stated that she has been making suicidal statements lately. They gave her 0.4 mg of Narcan 2 without any improvement in mental status. They did note pinpoint pupils and sonorous respirations with decreased respiratory rate. They attempted to intubate her by pretreating her with 20 mg of etomidate and 2 mg of Versed, however they were unable to unhinge her jaw, so intubation was not attempted. Upon arrival to the emergency department the patient's respirations were assisted by BVM. She was unresponsive. She was given 4 mg of IV Narcan upon arrival with only minimal improvement in mentation as well as response to painful stimuli. Patient was forming in her mouth and not protecting her airway. Therefore she was intubated by ED attending for airway protection. Subjective: 04/22: Patient remains sedated and intubated. Noted hypertensive, patient was noted to be positive for amphetamine. PRN labetalol ordered. 04/23: Afebrile .Acute events overnight. The patient received hydralazine in 2 intermittent doses for systolic blood pressure greater than 160mmHg. CPAP trials initiated this afternoon with SBT parameters to be obtained. Plan is for possible extubation today. Sedation has been discontinued and the patient has been placed on low-dose Precedex in anticipation for CPAP trials and SBT parameters. 04/24: No acute events overnight. Patient failed SBT with parameters, with NIF - 15 yesterday. CPAP trials initiated this a.m., plan for repeat SBT parameters for possible extubation. Hemodynamically stable. 04/25: No acute events overnight. The patient was extubated for approximately 24 hours. Hemodynamically stable .Patient tolerating diet, complaining of sore throat. Did discuss with Dr. Martell, plan for transfer to medical inpatient psych unit. Objective Vital Signs Date Time Temp Pulse Resp B/P (MAP) Pulse Ox O2 Delivery O2 Flow Rate FiO2 04/25/17 08:21 100 04/25/17 06:00 102 04/25/17 05:00 98.9 39 129/79 (96) 04/24/17 19:18 21 04/24/17 11:28 Nasal Cannula 4.00 Intake and Output 04/25/17 04/25/17 04/26/17 08:00 16:00 00:00 Intake Total 580 ml Output Total 600 ml Balance -20 ml Result Diagram: 04/25/17 0607 04/25/17 0607 Imaging Last Impressions Chest X-Ray 04/24/17 0600 Signed Impressions: Service Date/Time: Monday, April 24, 2017 02:59 - CONCLUSION: The lungs are clear. Adan Dumas MD Head CT 04/21/172241 Signed Impressions: Service Date/Time: Saturday, April 22, 2017 09:43 - CONCLUSION: No acute disease. Margarita Ware MD Last Impressions Chest X-Ray 04/23/17 0000 Signed Impressions: Service Date/Time: Sunday, April 23, 2017 04:28 - CONCLUSION: The lungs are clear. Adan Dumas MD Head CT 04/21/172241 Signed Impressions: Service Date/Time: Saturday, April 22, 2017 09:43 - CONCLUSION: No acute disease. Margarita Ware MD Last Impressions Head CT 04/21/172241 Signed Impressions: Service Date/Time: Saturday, April 22, 2017 09:43 - CONCLUSION: No acute disease. Margarita Ware MD Chest X-Ray 04/21/172241 Signed Impressions: Service Date/Time: Friday, April 21, 2017 23:04 - CONCLUSION: 1. Lungs are clear. Heart size is normal. 2. Appropriate position of life support tubes. Nirmal Green MD Objective Remarks GENERAL: Well-nourished, well-developed patient of appropriate stated age. Awake and alert and planing of a sore throat from endotracheal to SKIN: Warm and dry. HEAD: Normocephalic. EYES: No scleral icterus. No injection or drainage. Pupils are 3 mm bilaterally and reactive NECK: Supple, trachea midline. No JVD or lymphadenopathy. CARDIOVASCULAR: Regular rate and rhythm without murmurs, gallops, or rubs. RESPIRATORY: Breath sounds equal bilaterally. No accessory muscle use. GASTROINTESTINAL: Abdomen soft, non-tender, nondistended. MUSCULOSKELETAL: No cyanosis, or edema. BACK: Nontender without obvious deformity. NEURO EXAM: GCS: M 5 Vt E2 Mental Status: Awake and alert. GCS 15. Extremities 4. Motor strength 5/5 bilateral upper and lower extremities A/P Assessment and Plan Respiratory failure-resolved - Intubated for an airway protection - Vent bundle - Mechanical ventilation - No weaning until neurologically improved - DuoNeb's when necessary -04/23-CPAP trials initiated-Precedex infusion, failed NIF -15, repeat CPAP trials reinitiated this a.m., with SBT parameters plan -04/24-chest x-ray-clear, PT parameters RSBI 21, NIF -22,FVC 900 , positive cuff leak. ABG 7.39/32/178/19/-4.4 Overdose-resolved - Unclear substance - Toxicology screen positive for amphetamines - Neuro checks per unit protocol - Supportive care - Hep-Lock IV Depression - Psych evaluation when extubated - Risperdal Hypertension-resolved - Labetalol, and hydralazine PRN for SBP > 160mmHg -Resume patient's home medication lisinopril Hypothyroidism - Levothyroxine-125 mics/day home medication continue - TSH level 2.170 WNL DVT GI prophylaxis - Teds SCDs - Lovenox - Pepcid Dispo: Level 2 follow-up. Discussed with COMMISSIONER OF OFFICIALS at bedside (Bonilla) Discussed with patient's 3 sisters and updated them on patient's status.. Patient has been [place] acted, plan for transition to [facility] in a.m., possible transfer to inpatient psychiatry medical unit, on psychiatrist's recommendation. 04/25; Patient has been medically cleared doing well tolerating a diet hemodynamically stable home medications resumed with the exception of Adderall. Plan transfer to inpatient medical psych unit discussed with Dr. Pugh Physician Nallely Goddard MD Apr 25, 2017 13:22
--- NOTE | 2017-04-25 13:23 | HHI.DS ---
Discharge Summary Admission Date Apr 21, 2017 at 23:39 Admitting Diagnosis AMS, possible overdose, acute respiratory failure (1) Depression ICD Code: F32.9 - Major depressive disorder, single episode, unspecified Status: Acute Brief History 41-year-old female brought in by ambulance from home unresponsive as a potential drug overdose. According to EMS the patient was found by her son unresponsive in her bedroom with empty pill bottles nearby. EMS reports that the son stated that she has been making suicidal statements lately. They gave her 0.4 mg of Narcan 2 without any improvement in mental status. They did note pinpoint pupils and sonorous respirations with decreased respiratory rate. They attempted to intubate her by pretreating her with 20 mg of etomidate and 2 mg of Versed, however they were unable to unhinge her jaw, so intubation was not attempted. Upon arrival to the emergency department the patient's respirations were assisted by BVM. She was unresponsive. She was given 4 mg of IV Narcan upon arrival with only minimal improvement in mentation as well as response to painful stimuli. Patient was forming in her mouth and not protecting her airway. Therefore she was intubated by ED attending for airway protection. CBC/BMP: 04/25/17 0607 04/25/17 0607 Significant Findings Laboratory Tests Test 04/23/17 04:17 04/24/17 03:46 04/24/17 10:56 04/25/17 06:07 Neutrophils (%) (Auto) 82.3 % (16.0-70.0) Neutrophils # (Auto) 8.4 TH/MM3 (1.8-7.7) Activated Partial Thromboplast Time 22.1 SEC (24.3-30.1) Blood Urea Nitrogen 5 MG/DL (7-18) 4 MG/DL (7-18) Albumin 3.1 GM/DL (3.4-5.0) Calcium Level 8.4 MG/DL (8.5-10.1) 8.2 MG/DL (8.5-10.1) Carbon Dioxide Level 20.6 MEQ/L (21.0-32.0) 20.8 MEQ/L (21.0-32.0) Potassium Level 3.2 MEQ/L (3.5-5.1) 3.4 MEQ/L (3.5-5.1) Chloride Level 111 MEQ/L (98-107) 110 MEQ/L (98-107) Blood Gas HCO3 20 mmol/L (22-26) Blood Gas Base Excess -4.4 mmol/L (-2-2) Arterial Blood Partial Pressure CO2 33 mmHg (38-42) Arterial Blood Partial Pressure O2 178 mmHg (61-120) Blood Gas Hemoglobin 11.2 G/DL (12.0-16.0) Red Blood Count 3.95 MIL/MM3 (4.00-5.30) Hematocrit 34.2 % (35.0-46.0) Phosphorus Level 2.2 MG/DL (2.5-4.9) Hospital Course 41-year-old female brought in by ambulance from home unresponsive as a potential drug overdose. According to EMS the patient was found by her son unresponsive in her bedroom with empty pill bottles nearby. EMS reports that the son stated that she has been making suicidal statements lately. They gave her 0.4 mg of Narcan 2 without any improvement in mental status. They did note pinpoint pupils and sonorous respirations with decreased respiratory rate. They attempted to intubate her by pretreating her with 20 mg of etomidate and 2 mg of Versed, however they were unable to unhinge her jaw, so intubation was not attempted. Upon arrival to the emergency department the patient's respirations were assisted by BVM. She was unresponsive. She was given 4 mg of IV Narcan upon arrival with only minimal improvement in mentation as well as response to painful stimuli. Patient was forming in her mouth and not protecting her airway. Therefore she was intubated by ED attending for airway protection. Subjective: 04/22: Patient remains sedated and intubated. Noted hypertensive, patient was noted to be positive for amphetamine. PRN labetalol ordered. 04/23: Afebrile .Acute events overnight. The patient received hydralazine in 2 intermittent doses for systolic blood pressure greater than 160mmHg. CPAP trials initiated this afternoon with SBT parameters to be obtained. Plan is for possible extubation today. Sedation has been discontinued and the patient has been placed on low-dose Precedex in anticipation for CPAP trials and SBT parameters. 04/24: No acute events overnight. Patient failed SBT with parameters, with NIF - 15 yesterday. CPAP trials initiated this a.m., plan for repeat SBT parameters for possible extubation. Hemodynamically stable. 04/25: No acute events overnight. The patient was extubated for approximately 24 hours. Hemodynamically stable .Patient tolerating diet, complaining of sore throat. Did discuss with Dr. Martell, plan for discharge to medical inpatient psych unit. Pt Condition on Discharge: Good Discharge Disposition: Disc to Psych Care Fac Discharge Instructions DIET: Follow Instructions for: As Tolerated, No Restrictions, Pureed Diet Speech Therapy-Diet Recommends: Pureed Activities you can perform: Regular-No Restrictions Nallely Calle MD Apr 25, 2017 13:23
--- NOTE | 2017-04-25 13:52 | HHI.PYPN ---
Subjective Remarks Patient was seen for reevaluation, she is accompanied by her mother. Patient seems to be sedated, but superficially cooperative. She minimizes recent suicidal attempt stating she did not take pills and her ex-boyfriend "planned all this to get rid of me". Her mother states that the patient has been depressed, having "a lot of issues with her sons and her boyfriend and she has already tried to commit suicide before". Review of Systems Psychiatric: COMPLAINS OF: Depression, Suicidal Ideation Mental Status Examination Appearance: Appropriate Consciousness: Alert Orientation: x4 Motor Activity: Normal gait Speech: Unremarkable Language: Adequate Fund of Knowledge: Adequate Attention and Concentration: Adequate Memory: Unremarkable Mood: Angry, Oppositional Affect: Irritable, Sad Thought Process & Associations: Intact Thought Content: Appropriate Hallucination Type: None Delusion Type: None Suicidal Ideation: Yes Suicidal Plan: Yes Suicidal Intention: No Homicidal Ideation: No Homicidal Plan: No Homicidal Intention: No Insight: Poor Judgment: Poor Results Labs Test 04/25/17 06:07 White Blood Count 10.4 TH/MM3 Red Blood Count 3.95 MIL/MM3 Hemoglobin 11.7 GM/DL Hematocrit 34.2 % Mean Corpuscular Volume 86.8 FL Mean Corpuscular Hemoglobin 29.6 PG Mean Corpuscular Hemoglobin Concent 34.1 % Red Cell Distribution Width 13.1 % Platelet Count 262 TH/MM3 Mean Platelet Volume 9.0 FL Blood Urea Nitrogen 7 MG/DL Creatinine 0.50 MG/DL Random Glucose 97 MG/DL Calcium Level 8.6 MG/DL Phosphorus Level 2.2 MG/DL Magnesium Level 2.0 MG/DL Sodium Level 144 MEQ/L Potassium Level 3.4 MEQ/L Chloride Level 110 MEQ/L Carbon Dioxide Level 21.2 MEQ/L Anion Gap 13 MEQ/L Estimat Glomerular Filtration Rate 136 ML/MIN Vitals/IOs Vital Signs Date Time Temp Pulse Resp B/P (MAP) Pulse Ox O2 Delivery O2 Flow Rate FiO2 04/25/17 08:21 100 04/25/17 06:00 102 04/25/17 05:00 98.9 39 129/79 (96) 04/24/17 19:18 21 04/24/17 11:28 Nasal Cannula 4.00 Intake and Output 04/25/17 04/25/17 04/26/17 08:00 16:00 00:00 Intake Total 580 ml Output Total 600 ml Balance -20 ml Assessment & Plan Problem List: (1) Depression ICD Codes: F32.9 - Major depressive disorder, single episode, unspecified Status: Acute Assessment & Plan: No psychotropics recommended at this moment. Transfer to MEd /psy once medically stable. Assessment & Plan Estimated LOS: days Justification for Cont. Inpt. Patient needs psychiatric hospitalization for stabilization. Problem Qualifiers (1) Depression: Kraig Pugh MD Apr 25, 2017 13:52
== END 2017-04-25 15:15 | DRG 917 ==
LOC: NEPC 22:29 → NEDA 23:39 → HIMW 04-22 00:49
PROVIDERS: ADMIT Internal Medicine; ATTEND Internal Medicine
PROC: 0BH17EZ Insertion of Endotracheal Airway into Trachea, Via Natural or Artificial Opening (ICD-10-PCS; principal; 2017-04-21)
PROC: 5A1945Z Respiratory Ventilation, 24-96 Consecutive Hours (ICD-10-PCS; 2017-04-22)
DX: T50.901A Poisoning by unspecified drugs, medicaments and biological substances, accidental (unintentional), initial encounter (principal); J96.00 Acute respiratory failure, unspecified whether with hypoxia or hypercapnia; F32.9 Major depressive disorder, single episode, unspecified; Z72.89 Other problems related to lifestyle; Y90.7 Blood alcohol level of 200-239 mg/100 ml; E03.9 Hypothyroidism, unspecified; I10 Essential (primary) hypertension; F90.9 Attention-deficit hyperactivity disorder, unspecified type; Z87.891 Personal history of nicotine dependence
CPT/HCPCS: 31500; 36600; 43753; 51702; 70450; 71045; 76937; 80048; 80053; 80307; 82140; 82805; 82948; 83735; 84100; 84443; 84702; 85025; 85027; 85610; 85730; 87641; 93005; 94002; 94003; 94150; 94640; 94664; 96365; 96375; J0360; J0610; J1100; J1650; J2250; J2405; J3010; J3480; J7030

== ENCOUNTER 2017-04-25 14:25 | Inpatient (IN) | payer OTHER ==
[~2017-04-25] VITALS: Ht 162.6 cm; Wt 72.9 kg
[~2017-04-25 14:25] MED LIST changes: +CIPR-9 PO; +DICY20TA10 PO; +MELO15TA20 PO; +METR-1 PO; +OMEP20TA93 PO; +PROM12.54 PO; +RISP0.5T2 PO; +TAMS0.4C4 PO
[2017-04-25] MEDS ORDERED: ACETAMINOPHEN 325 MG TAB PO PRN (16:00)
[2017-04-25] MEDS ORDERED: NICOTINE 21 MG/24 HR PATCH T-DERMAL PRN (16:00)
[2017-04-25] MEDS ORDERED: ALUMINUM/MAGNESIUM/SIMETH 30 ML CUP PO PRN (16:00)
[2017-04-25] MEDS ORDERED: MAGNESIUM HYDROXIDE SUSP 30 ML CUP PO PRN (16:00)
[2017-04-25 18:00] VITALS: BP 141/88; PULSE 99; RESP 18; TEMP 98; O2SAT 99
[2017-04-25] MEDS ORDERED: LORazepam 2 MG/ML VIAL ONE (20:55)
[2017-04-25] MEDS: ATORVASTATIN 20 MG TAB PO SCH (21:00)
[2017-04-25] MEDS ORDERED: REMOVE OLD NICODERM (NICOTINE) PATCH T-DERMAL PRN (21:00)
[2017-04-25] MEDS: RESP: ALBUTEROL 2.5 MG/IPRATROPIUM 0.5 MG NEB (PRN) NEB (21:04)
[2017-04-25] MEDS ORDERED: FLUMAZENIL 0.5 MG/5 ML VIAL IV PUSH PRN (21:15)
[2017-04-25] MEDS ORDERED: LORazepam 2 MG TAB PO PRN (21:15)
[2017-04-25] MEDS ORDERED: LORazepam 1 MG TAB PO PRN (21:15)
[2017-04-25] MEDS ORDERED: LORazepam 2 MG/ML VIAL IV PUSH PRN ×3 (21:15)
[2017-04-25] MEDS ORDERED: HALOPERIDOL LACTATE 5 MG/ML AMP IM PRN (21:15)
[2017-04-25] MEDS: LORazepam 2 MG/ML VIAL IV PUSH PRN (21:18)
[2017-04-26] MEDS: LORazepam 2 MG/ML VIAL IV PUSH PRN ×2 (02:28→22:00)
[2017-04-26] MEDS: RESP: ALBUTEROL 2.5 MG/IPRATROPIUM 0.5 MG NEB (PRN) NEB ×4 (02:33→20:57)
[2017-04-26] MEDS: LEVOTHYROXINE SODIUM 125 MCG TAB PO SCH (05:36)
[2017-04-26 06:00] VITALS: BP 132/70; PULSE 101; RESP 20; TEMP 98.3; O2SAT 96
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
[2017-04-26] MEDS: LISINOPRIL 10 MG TAB PO SCH (08:51)
--- NOTE | 2017-04-26 09:04 | PD.CONS ---
HPI Service [facility] Consult Requested By Jaden Ross MD Reason for Consult Medical management after ICU Primary Care Physician Britton Rod M.D. Diagnoses: History of Present Illness Patient is a 41-year-old female who was initially brought in by ambulance and unresponsive with potential drug overdose. Per the chart review she was found by her son unresponsive in her bedroom with empty pill bottles nearby. EMS reports the son stated that she had been making suicidal statements prior to this. They gave her 0.4 mg of Narcan 2 without any improvement had pinpoint pupils and decreased respirations EMS was not able to intubate. The patient was brought to the emergency department where she was intubated by the emergency room physician. Patient was monitored in the ICU from the through 25 April had been on the ventilator. Was extubated yesterday and was transferred to inpatient psychiatry medical unit We have been asked to consult regarding help with medical management Review of Systems Constitutional: DENIES: Diaphoretic episodes, Fatigue, Fever, Weight gain, Weight loss, Chills, Dizziness, Change in appetite, Night Sweats Endocrine: DENIES: Abnorml menstrual pattern, Heat/cold intolerance, Polydipsia , Polyuria, Polyphagia Eyes: DENIES: Blurred vision, Diplopia, Eye inflammation, Eye pain, Vision loss , Photosensitivity, Double Vision Ears, nose, mouth, throat: DENIES: Tinnitus, Hearing loss, Vertigo, Nasal discharge, Oral lesions, Throat pain, Hoarseness, Ear Pain, Running Nose, Epistaxis Respiratory: DENIES: Apneas, Cough, Snoring, Wheezing, Hemoptysis, Sputum production, Shortness of breath Cardiovascular: DENIES: Chest pain, Palpitations, Syncope, Dyspnea on Exertion , PND, Lower Extremity Edema Gastrointestinal: DENIES: Abdominal pain, Black stools, Bloody stools Genitourinary: DENIES: Abnormal vaginal bleeding, Dysmenorrhea, Dyspareunia, Sexual dysfunction Musculoskeletal: DENIES: Joint pain, Muscle aches, Stiffness, Joint Swelling, Back pain, Neck pain Integumentary: DENIES: Abnormal pigmentation, Pruritus, Rash, Nail changes, Breast masses, Breast skin changes Hematologic/lymphatic: DENIES: Bruising, Lymphadenopathy Immunologic/allergic: DENIES: Eczema, Urticaria Neurologic: DENIES: Abnormal gait, Headache, Localized weakness, Paresthesias, Seizures, Speech Problems, Tremor, Poor Balance Psychiatric: COMPLAINS OF: Anxiety, Confusion, Mood changes, Depression, Suicidal Ideation, DENIES: Hallucinations, Agitation, Homicidal Ideation, Delusions Except as stated in HPI: all other systems reviewed are Neg Past Family Social History Allergies: Coded Allergies: Sulfa (Sulfonamide Antibiotics) (Unverified Allergy, Severe, N/V, 04/21/17) morphine (Unverified Allergy, Severe, RESP PROBLEMS, 04/21/17) Past Medical History Status post respiratory failure being on the vent. possible overdose tox screen was positive for amphetamines the patient had been on Adderall possibly Depression Hypertension Hypothyroidism Past Surgical History Tonsillectomy Appendectomy Cholecystectomy Hysterectomy Reported Medications Reported Meds & Active Scripts Active Reported Lipitor (Atorvastatin Calcium) 20 Mg Tab 20 Mg PO HS Active Ordered Medications Current Medications Acetaminophen (Tylenol) 650 mg Q4H PRN PO Pain 1-5 or Temp >101F; Start at 16:00 Magnesium Hydroxide (Milk Of Magnesia Liq) 30 ml DAILY PRN PO CONSTIPATION; Start 04/25/17 at 16:00 Al Hydrox/Mg Hydrox/Simethicone (Mag-Al Plus Susp Liq) 30 ml Q6H PRN PO DYSPEPSIA; Start 04/25/17 at 16:00 Nicotine (Habitrol 21 Mg Patch.24 Hr) 1 patch DAILY PRN T-DERMAL nicotine craving; Start 04/25/17 at 16:00 Atorvastatin Calcium (Lipitor) 20 mg HS PO Last administered on 04/25/17at 21:00 ; Start 04/25/17 at 21:00 Lisinopril (Prinivil) 10 mg DAILY PO Last administered on 04/26/17at 08:51; Start 04/26/17 at 09:00 Levothyroxine Sodium (Synthroid) 125 mcg DAILY@0600 PO Last administered on at 05:36; Start 04/26/17 at 06:00 Miscellaneous Information 1 HS PRN T-DERMAL REMOVE OLD PATCH; Start 04/25/17 at 21:00 Albuterol/ Ipratropium (Duoneb Neb) 1 ampule Q6HR NEB PRN NEB SHORTNESS OF BREATH Last administered on 04/26/17at 02:33; Start 04/25/17 at 19:00 Lorazepam (Ativan Inj) 2 mg STK-MED ONCE .ROUTE ; Start 04/25/17 at 20:55; Stop 04/25/17 at 20:56; Status DC Lorazepam (Ativan) 1 mg Q4H PRN PO CIWA 8-10; Start 04/25/17 at 21:15 Lorazepam (Ativan Inj) 1 mg Q4H PRN IV PUSH CIWA 8-10 Last administered on 04/26at 02:28; Start 04/25/17 at 21:15 Lorazepam (Ativan) 2 mg Q2H PRN PO CIWA 11-14; Start 04/25/17 at 21:15 Lorazepam (Ativan Inj) 2 mg Q2H PRN IV PUSH CIWA 11-14; Start 04/25/17 at 21:15 Lorazepam (Ativan Inj) 2 mg Q1H PRN IV PUSH CIWA 15-20; Start 04/25/17 at 21:15 Lorazepam (Ativan Inj) 2 mg Q15M PRN IV PUSH CIWA > 20; Start 04/25/17 at 21:15 Haloperidol Lactate (Haldol Inj) 2 mg Q15M PRN IM SEE LABEL COMMENTS; Start at 21:15 Flumazenil (Romazicon Inj) 0.2 mg Q1M PRN IV PUSH SEE LABEL COMMENTS; Start at 21:15 Family History Possible depression and hypertension Social History Denies any current tobacco quit 8 years ago Drinks alcoholic beverages probably twice a week Denies any illicit Physical Exam Vital Signs Vital Signs Date Time Temp Pulse Resp B/P (MAP) Pulse Ox O2 Delivery O2 Flow Rate FiO2 04/26/17 06:00 98.3 101 20 132/70 (90) 96 04/25/17 18:00 98.0 99 18 141/88 (105) 99 Physical Exam GENERAL: This is a well-nourished, well-developed patient, in no apparent distress. Very flat affect SKIN: No rashes, ecchymoses or lesions. Cool and dry. HEAD: Atraumatic. Normocephalic. No temporal or scalp tenderness. EYES: Pupils equal round and reactive. Extraocular motions intact. No scleral icterus. No injection or drainage. ENT: Nose without bleeding, purulent drainage or septal hematoma. Throat without erythema, tonsillar hypertrophy or exudate. Uvula midline. Airway patent. NECK: Trachea midline. No JVD or lymphadenopathy. Supple, nontender, no meningeal signs. CARDIOVASCULAR: Regular rate and rhythm without murmurs, gallops, or rubs. S1- S2 no S3 or S4 RESPIRATORY: Clear to auscultation. Breath sounds equal bilaterally. No wheezes , rales, or rhonchi. GASTROINTESTINAL: Abdomen soft, non-tender, nondistended. No hepato-splenomegaly , or palpable masses. No guarding. MUSCULOSKELETAL: Extremities without clubbing, cyanosis, or edema. No joint tenderness, effusion, or edema noted. No calf tenderness. Negative Homans sign bilaterally. NEUROLOGICAL: Awake and alert. Cranial nerves II through XII intact. Motor and sensory grossly within normal limits. Five out of 5 muscle strength in all muscle groups. Normal speech. Insight and judgment are limited Mood and behavior are somewhat appropriate Assessment and Plan Problem List: (1) Depression ICD Code: F32.9 - Major depressive disorder, single episode, unspecified Status: Acute Assessment and Plan Status post vent dependent respiratory failure extubated within the past 48 hours Overdose. Treatment per psychiatry --was positive for amphetamines Hypertension continue on her home medications labeled lisinopril Hyperlipidemia had been on a statin Lipitor History of diverticulitis and colitis currently stable We will get a.m. labs discussed with patient and RN Code Status Full code Discussed Condition With RN and patient Obed Alvarez DO Apr 26, 2017 09:04
[2017-04-26 09:23] LABS: AUTOMATED NEUTROPHIL # 5.6 TH/MM3 (1.8-7.7); BASOPHIL % 0.5 % (0.0-2.0); EOSINOPHIL # 0.2 TH/MM3 (0-0.4); EOSINOPHIL % 3.1 % (0.0-4.0); HEMATOCRIT 38.3 % (35.0-46.0); HEMOGLOBIN 13.1 GM/DL (11.6-15.3); LYMPH % 19.4 % (9.0-44.0); LYMPHOCYTE # 1.5 TH/MM3 (1.0-4.8); MEAN CELL VOLUME 87.5 FL (80.0-100.0); MEAN CORPUSCULAR HEMOGLOBIN 29.8 PG (27.0-34.0); MEAN CORPUSCULAR HGB CONC 34.1 % (32.0-36.0); MEAN PLATELET VOLUME 8.3 FL (7.0-11.0); MONO % 6.7 % (0.0-8.0); MONOCYTE # 0.5 TH/MM3 (0-0.9); NEUT % 70.3 % (16.0-70.0); PLATELET COUNT 298 TH/MM3 (150-450); RED BLOOD COUNT 4.38 MIL/MM3 (4.00-5.30)
[2017-04-26 09:56] LABS: ALBUMIN 3.3 GM/DL (3.4-5.0); ALKALINE PHOSPHATASE 94 U/L (45-117); ALT (GPT) 48 U/L (10-53); AST (GOT) 49 U/L (15-37); BICARBONATE 25.3 MEQ/L (21.0-32.0); BLOOD UREA NITROGEN 8 MG/DL (7-18); CALCIUM 9.1 MG/DL (8.5-10.1); CHLORIDE 103 MEQ/L (98-107); CHOLESTEROL 218 MG/DL (120-200); CHOLESTEROL/ HDL RATIO 4.12 RATIO; CREATININE 0.69 MG/DL (0.50-1.00); FREE T4 1.39 NG/DL (0.76-1.46); GLOMERULAR FILTRATION RATE 94 ML/MIN (>89); GLUCOSE,RANDOM 132 MG/DL (74-106); HDL CHOLESTEROL 52.9 MG/DL (40.0-60.0); LDL CHOLESTEROL 134 MG/DL (0-99); PHOSPHORUS 3.2 MG/DL (2.5-4.9); SODIUM (NA) 139 MEQ/L (136-145); TOTAL BILIRUBIN ADULT 0.3 MG/DL (0.2-1.0); TOTAL PROTEIN 7.3 GM/DL (6.4-8.2); TRIGLYCERIDES 156 MG/DL (42-150)
[2017-04-26] MEDS: THIAMINE HCL 100 MG TAB PO SCH (12:32)
[2017-04-26] MEDS: FOLIC ACID 1 MG TAB PO SCH (12:32)
[2017-04-26 17:21] LABS: HEMOGLOBIN A1C 5.6 % (4.3-6.0)
[2017-04-26 18:36] VITALS: BP 120/79; PULSE 88; RESP 18; TEMP 97.3; O2SAT 94
[2017-04-26] MEDS: ATORVASTATIN 20 MG TAB PO SCH (21:00)
[2017-04-27 06:00] VITALS: BP 106/58; PULSE 95; RESP 16; TEMP 98.5; O2SAT 96
[2017-04-27] MEDS: LEVOTHYROXINE SODIUM 125 MCG TAB PO SCH (06:00)
[2017-04-27] MEDS: THIAMINE HCL 100 MG TAB PO SCH (08:17)
[2017-04-27] MEDS: LISINOPRIL 10 MG TAB PO SCH (08:18)
[2017-04-27] MEDS: FOLIC ACID 1 MG TAB PO SCH (08:18)
[2017-04-27] MEDS ORDERED: LEVO.125 PO (11:58)
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
[2017-04-27] MEDS ORDERED: LISI10TA3 PO (12:00)
--- NOTE | 2017-04-27 12:01 | HHI.PR ---
Subjective Remarks Patient complains of right shoulder pain and sore throat no fever or chills, she is to have good R OM of the shoulder Objective Vitals Vital Signs Date Time Temp Pulse Resp B/P (MAP) Pulse Ox O2 Delivery O2 Flow Rate FiO2 04/27/17 06:00 98.5 95 16 106/58 (74) 96 04/26/17 18:36 97.3 88 18 120/79 (93) 94 I/O 04/26/17 04/26/17 04/26/17 04/27/17 04/27/17 04/27/17 07:00 15:00 23:00 07:00 15:00 23:00 Intake Total 1320 ml 0 ml Balance 1320 ml 0 ml Intake Oral 1320 ml 0 ml # Voids 5 0 Result Diagram: 04/26/17 0900 04/26/17 0900 Objective Remarks GENERAL: This is a well-nourished, well-developed patient, in no apparent distress. CARDIOVASCULAR: Regular rate and rhythm without murmurs, gallops, or rubs. RESPIRATORY: Clear to auscultation. Breath sounds equal bilaterally. No wheezes , rales, or rhonchi. GASTROINTESTINAL: Abdomen soft, non-tender, nondistended. Normal active bowel sounds MUSCULOSKELETAL: Extremities without clubbing, cyanosis, or edema. NEURO: Alert & Oriented x4 to person, place, time, situation. Moves all ext x4 HEENT: Pharyngeal congestion A/P Problem List: (1) Depression ICD Code: F32.9 - Major depressive disorder, single episode, unspecified Status: Acute Assessment and Plan Status post vent dependent respiratory failure extubated within the past 48 hours Overdose. Treatment per psychiatry --was positive for amphetamines Hypertension continue on her home medications labeled lisinopril Hyperlipidemia had been on a statin Lipitor History of diverticulitis and colitis currently stable Right shoulder pain: I ordered x-ray as an initial workup we will follow Kelvin Lockwood MD Apr 27, 2017 12:01
== END 2017-04-27 12:55 | disposition left against medical advice (07) | DRG 882 ==
LOC: H4EA 14:25
PROVIDERS: ADMIT Psychiatry & Neurology Psychiatry; ATTEND Psychiatry & Neurology Psychiatry
DX: F43.20 Adjustment disorder, unspecified (principal); F90.9 Attention-deficit hyperactivity disorder, unspecified type; I10 Essential (primary) hypertension; E78.5 Hyperlipidemia, unspecified; M25.511 Pain in right shoulder; J02.9 Acute pharyngitis, unspecified; F32.9 Major depressive disorder, single episode, unspecified; Z87.891 Personal history of nicotine dependence
CPT/HCPCS: 80053; 80061; 83036; 83735; 84100; 84439; 84443; 85025; 94640; 94664; J2060